=== PATIENT | male | born 1975 | race Caucasian/White ===

== ENCOUNTER 2018-04-14 06:20 | Emergency (ER) | payer MEDICAID ==
[~2018-04-14] VITALS: Ht 157.5 cm; Wt 104.3 kg
[2018-04-14 06:22] VITALS: BP 155/99
[2018-04-14] MEDS ORDERED: IBUPROFEN 600 MG TABLET PO ONE ×2 (07:22→07:30)
== END 2018-04-14 07:25 | disposition home or self-care (01) ==
LOC: ER 06:22
DX: S52.591A Other fractures of lower end of right radius, initial encounter for closed fracture (principal); W18.39XA Other fall on same level, initial encounter; Y93.89 Activity, other specified; Y92.89 Other specified places as the place of occurrence of the external cause; Y99.8 Other external cause status
CPT/HCPCS: 73110; A4606; Z7610

== ENCOUNTER 2022-09-14 21:14 | Emergency (ER) | payer MEDICAID ==
[~2022-09-14] VITALS: Ht 165.1 cm; Wt 126.6 kg
--- NOTE | 2022-09-14 21:35 | NUR ---
BIBSELF C/O RIGHT THIGH/KNEE AND GROIN PAIN AND SWELLING FOR ONE DAY. PT IS AAO X 4, FIJIAN SPEAKING, NOT IN DISTRESS. PT STATES SYMPTOMS INCLUDE DRAINAGE. PT ATTAHCED TO MONITOR AND PULSE OX. WILL MONITOR.
--- NOTE | 2022-09-14 21:38 | NUR ---
DISTRICT COURT JUDGE AT PT'S BEDSIDE
--- NOTE | 2022-09-14 21:47 | NUR ---
Note jose fone in EDM - 09/14/22 at 2150 by LEA BIBSELF C/O RIGHT THIGH/KNEE AND GROIN PAIN AND SWELLING FOR ONE DAY. PT IS AAO X 4, ARABIC SPEAKING, NOT IN DISTRESS. PT STATES SYMPTOMS INCLUDE DRAINAGE. PT ATTAHCED TO MONITOR AND PULSE OX. WILL MONITOR.
[2022-09-14 21:49] LABS: BASOPHILS % (AUTO) 0.5 % (0.0-2.0); EOSINOPHILS % (AUTO) 4.2 % (0.0-6.0); HEMATOCRIT 44 % (39-51); HEMOGLOBIN 14.5 g/dL (13.5-17.5); LYMPHOCYTES # (AUTO) 1.4 K/uL (0.8-4.8); LYMPHOCYTES % (AUTO) 28.2 % (20.0-44.0); MEAN CORPUSCULAR HGB CONC 33 g/dl (31.0-36.0); MEAN CORPUSCULAR VOLUME 90 fL (80-96); MONOCYTES # (AUTO) 0.8 K/uL (0.1-1.30); MONOCYTES % (AUTO) 15.8 % (2.0-12.0); NEUTROPHILS # (AUTO) 2.6 K/uL (1.8-8.9); NEUTROPHILS % (AUTO) 51.3 % (43.0-81.0); PLATELET COUNT (AUTO) 259 K/uL (150-450); RED BLOOD CELL COUNT(AUTO) 4.91 MIL/uL (4.5-6.0); WHITE BLOOD COUNT (AUTO) 5.1 K/uL (4.3-11.0)
[2022-09-14 22:01] LABS: CALCIUM, SERUM 8.3 mg/dL (8.5-10.1); CREATININE 0.7 mg/dL (0.6-1.3); POTASSIUM 3.8 mmol/L (3.5-5.1)
[2022-09-14 22:44] VITALS: BP 154/70
--- NOTE | 2022-09-14 22:44 | NUR ---
Patient discharged to home in stable condition. Written and verbal after care instructions given. Patient verbalizes understanding of instruction. Pt is ambulatory with a steady gait
[2022-09-15 05:16] LABS: EOSINOPHILS % (MANUAL) 3 % (0-4); LYMPHOCYTES % (MANUAL) 28 % (16-48); MONOCYTES % (MANUAL) 10 % (0-11.0); NEUTROPHILS % (MANUAL) 59 (42-76)
== END 2022-09-14 22:45 | disposition home or self-care (01) ==
LOC: ER 21:19
DX: R60.0 Localized edema (principal)
CPT/HCPCS: 99284; 93971; 85025; 80048; 36415; 83880; 85007; A6403

== ENCOUNTER 2023-09-05 11:53 | Inpatient (IN) | payer MEDICAID, OTHER ==
[~2023-09-05] VITALS: Ht 165.1 cm; Wt 102.5 kg
[2023-09-05] MEDS ORDERED: methylPREDNISolone SOD SUCC 125 MG/2ML VIAL ONE (12:27)
[2023-09-05] MEDS ORDERED: Magnesium 1GM/D5W 100ML PREMIX 100 ML IV ONE (12:29)
[2023-09-05] MEDS ORDERED: CEFEPIME 1 GM in IV D5W 50 ML IV ONE (12:30)
[2023-09-05] MEDS ORDERED: ACETAMINOPHEN 650 MG/20.3 ML UDC PO ONE (12:30)
[2023-09-05] MEDS ORDERED: methylPREDNISolone SOD SUCC 125 MG/2ML VIAL IV ONE (12:30)
[2023-09-05] MEDS ORDERED: IPRATROPIUM NEB FS 0.5 MG/2.5 ML AMPUL.NEB NEB ONE (12:30)
[2023-09-05] MEDS ORDERED: ALBUTEROL FS 2.5 MG/3 ML VIAL.NEB CONTNEB ONE (12:30)
[2023-09-05] MEDS ORDERED: VANCOMYCIN 1 GM in IV D5W 250 ML IV ONE (12:30)
[2023-09-05 12:39] LABS: ABG BASE EXCESS 3.1 mmol/L; ABG OXYGEN SATURATION 93.4 % (92.0-98.5); ABG PCO2 54.6 mmHg (35.0-45.0); ABG PH 7.357 (7.350-7.450); ABG PO2 72.7 mmHg (75.0-100.0); AaDO2 585.7 mmHg; COHb 1.3 % (0.5-1.5); MetHb 0.1 % (0.0-1.5); O2Hb 92.1 % (94.0-97.0); SITE, ABG Right Radial; VENT MODE, BG 18/8 16 100%
[2023-09-05] MEDS ORDERED: ACETAMINOPHEN ES 500 MG TABLET ONE (12:44)
[2023-09-05] MEDS ORDERED: ALBUTEROL FS 2.5 MG/3 ML VIAL.NEB ONE (12:46)
[2023-09-05] MEDS ORDERED: IPRATROPIUM NEB FS 0.5 MG/2.5 ML AMPUL.NEB ONE (12:46)
[2023-09-05 12:50] LABS: BASOPHILS % (AUTO) 0.3 % (0.0-2.0); HEMATOCRIT 43 % (39-51); LYMPHOCYTES # (AUTO) 0.3 K/uL (0.8-4.8); LYMPHOCYTES % (AUTO) 4.9 % (20.0-44.0); MEAN CORPUSCULAR HEMOGLOBIN 30 PG (26.0-33.0); MEAN CORPUSCULAR HGB CONC 33 g/dl (31.0-36.0); MEAN CORPUSCULAR VOLUME 90 fL (80-96); MONOCYTES # (AUTO) 0.4 K/uL (0.1-1.30); MONOCYTES % (AUTO) 6.4 % (2.0-12.0); NEUTROPHILS # (AUTO) 5.6 K/uL (1.8-8.9); NEUTROPHILS % (AUTO) 88.4 % (43.0-81.0); PLATELET COUNT (AUTO) 276 K/uL (150-450); RED BLOOD CELL COUNT(AUTO) 4.73 MIL/uL (4.5-6.0); RED CELL DISTRIBUTION WIDTH 13.7 % (11.5-15.0); WHITE BLOOD COUNT (AUTO) 6.4 K/uL (4.3-11.0)
[2023-09-05 12:58] LABS: CALCIUM, SERUM 7.9 mg/dL (8.5-10.1); CARBON DIOXIDE 32 mmol/L (21-32); CHLORIDE 92 mmol/L (98-107); GLUCOSE 301 mg/dL (74-106); POTASSIUM 4.8 mmol/L (3.5-5.1); SODIUM SERUM 132 mmol/L (136-145); UREA NITROGEN, BLOOD 15 mg/dL (7-18)
[2023-09-05] MEDS ORDERED: FUROSEMIDE 40 MG/4 ML VIAL IV ONE (13:00)
[2023-09-05 13:03] LABS: ALANINE AMINOTRANSFERASE 128 U/L (12-78); ALBUMIN 2.6 g/dL (3.4-5.0); ALKALINE PHOSPHATASE 156 U/L (46-116); ASPARTATE AMINOTRANSFERASE 248 U/L (15-37); BILIRUBIN,DIRECT 0.1 mg/dL (0.0-0.2); BILIRUBIN,TOTAL 0.4 mg/dL (0.2-1.0); TOTAL PROTEIN, SERUM 7.4 g/dL (6.4-8.2)
[2023-09-05 13:14] LABS: INR 1.11 (0.91-1.10); PARTIAL THROMBOPLASTIN TIME 27.1 SEC (24.3-34.3); PROTHROMBIN TIME 11.7 SECS (9.2-11.1)
[2023-09-05 13:23] LABS: LACTIC ACID 3.7 mmol/L (0.4-2.0)
[2023-09-05] MEDS ORDERED: ONDANSETRON HCL/PF - ER 4 MG/2 ML VIAL IV ONE (13:30)
[2023-09-05] MEDS ORDERED: IV NS 0.9% 500 ML IV ONE (13:30)
[2023-09-05 14:10] LABS: ABG BASE EXCESS 4.4 mmol/L; ABG OXYGEN SATURATION 93.6 % (92.0-98.5); ABG PCO2 68.8 mmHg (35.0-45.0); ABG PH 7.301 (7.350-7.450); ABG PO2 78.2 mmHg (75.0-100.0); ABG TOTAL HEMOGLOBIN 14.8 G/dL (13.5-18.0); COHb 0.9 % (0.5-1.5); MetHb 0.3 % (0.0-1.5); O2Hb 92.5 % (94.0-97.0); SITE, ABG Right Radial; VENT MODE, BG ST 18/8 16 100%
[2023-09-05 15:04] LABS: MONOTEST NEGATIVE (NEGATIVE)
[2023-09-05] MEDS ORDERED: CEFTRIAXONE 1 G in IV D5W 50 ML IV SCH (15:30)
[2023-09-05] MEDS ORDERED: DEXTROSE 50%-WATER 50 ML DISP.SYRIN IV PRN (16:00)
[2023-09-05] MEDS ORDERED: MAG HYDROX/AL HYDROX/SIMETH 30 ML UDC PO PRN (16:00)
[2023-09-05] MEDS ORDERED: Z GUARD REMEDY 4 OZ OINT TP PRN (16:00)
[2023-09-05] MEDS ORDERED: ONDANSETRON HCL/PF 4 MG/2 ML VIAL IVP PRN (16:00)
[2023-09-05] MEDS ORDERED: MORPHINE SULFATE INJ 2 MG/ML DISP.SYRIN IV PRN (16:00)
[2023-09-05] MEDS ORDERED: MAGNESIUM HYDROXIDE 30 ML UDC PO PRN (16:00)
[2023-09-05] MEDS ORDERED: ASPIRIN 325 MG TABLET PO ONE (16:00)
[2023-09-05] MEDS ORDERED: ACETAMINOPHEN 325 MG TABLET PO PRN (16:00)
[2023-09-05] MEDS ORDERED: ASPIRIN 325 MG TABLET ONE (16:16)
[2023-09-05] MEDS: CEFTRIAXONE 2 G in IV D5W 100 ML IV SCH ×2 (16:30→16:37)
[2023-09-05 16:52] LABS: ABG BASE EXCESS 4.3 mmol/L; ABG OXYGEN SATURATION 94.3 % (92.0-98.5); ABG PCO2 71.8 mmHg (35.0-45.0); ABG PH 7.287 (7.350-7.450); ABG PO2 79.8 mmHg (75.0-100.0); COHb 0.4 % (0.5-1.5); MetHb 0.4 % (0.0-1.5); O2Hb 93.5 % (94.0-97.0); SITE, ABG Right Radial; VENT MODE, BG ST 20/8 RR 20 100%
[2023-09-05] MEDS: LEVOFLOXACIN 750 MG /D5W 150ML 150 ML IV SCH (17:00)
[2023-09-05] MEDS: BLOOD SUGAR DIAGNOSTIC 1 EACH STRIP IN SCH ×2 (18:17→21:23)
[2023-09-05] MEDS ORDERED: INSULIN REGULAR, HUMAN 100 UNIT/ML 10 ML VIAL ONE ×2 (18:20→18:22)
[2023-09-05] MEDS: INSULIN REGULAR, HUMAN 100 UNIT/ML 3 ML VIAL SQ PRN ×2 (18:23→22:18)
[2023-09-05] MEDS ORDERED: ENOXAPARIN SODIUM 40 MG/0.4 ML DISP.SYRIN SQ ONE (19:35)
[2023-09-05] MEDS ORDERED: methylPREDNISolone SOD SUCC 40 MG/ML VIAL ONE (19:35)
[2023-09-05 20:44] LABS: ABG BASE EXCESS 5.2 mmol/L; ABG OXYGEN SATURATION 94.8 % (92.0-98.5); ABG PCO2 73.3 mmHg (35.0-45.0); ABG PH 7.291 (7.350-7.450); ABG PO2 82.9 mmHg (75.0-100.0); ABG TOTAL HEMOGLOBIN 14.8 G/dL (13.5-18.0); COHb 0.2 % (0.5-1.5); MetHb 0.3 % (0.0-1.5); O2Hb 94.3 % (94.0-97.0); SITE, ABG Right Radial; VENT MODE, BG Bipap 25/8 100% rr20
[2023-09-05] MEDS: methylPREDNISolone SOD SUCC 40 MG/ML VIAL IV SCH (21:00)
[2023-09-05] MEDS: ENOXAPARIN SODIUM 40 MG/0.4 ML DISP.SYRIN SQ SCH (21:01)
[2023-09-06 00:19] LABS: APPEARANCE,URINE CLEAR (CLEAR); BILIRUBIN,URINE NEGATIVE (NEGATIVE); BLOOD, URINE TRACE-INTA Ery/uL (NEGATIVE); COLOR,URINE YELLOW (YELLOW); KETONES,URINE NEGATIVE (NEGATIVE); LEUKOCYTE ESTERASE ,URINE NEGATIVE (NEGATIVE); NITRITE, URINE NEGATIVE (NEGATIVE); PH,URINE 6.5 (5.0-8.0); PROTEIN,URINE 2+ mg/dl (NEGATIVE); UGLUCOSE TRACE mg/dL (NEGATIVE); UROBILINOGEN,URINE 0.2 EU/dL (0.2)
[2023-09-06 00:27] LABS: ADD URINE CULTURE NO; BACTERIA,URINE None seen /HPF (None Seen); SQUAMOUS EPITHELIAL CELL,UR Few /HPF (None Seen); WBC,URINE 0-2 /HPF (0-3)
[2023-09-06] MEDS ORDERED: methylPREDNISolone SOD SUCC 40 MG/ML VIAL ONE ×2 (05:01→13:09)
[2023-09-06] MEDS: methylPREDNISolone SOD SUCC 40 MG/ML VIAL IV SCH ×3 (05:02→21:41)
[2023-09-06 07:28] LABS: BASOPHILS % (AUTO) 0.2 % (0.0-2.0); HEMATOCRIT 49 % (39-51); HEMOGLOBIN 16.4 g/dL (13.5-17.5); LYMPHOCYTES # (AUTO) 0.7 K/uL (0.8-4.8); LYMPHOCYTES % (AUTO) 9.6 % (20.0-44.0); MEAN CORPUSCULAR HEMOGLOBIN 30 PG (26.0-33.0); MEAN CORPUSCULAR HGB CONC 33 g/dl (31.0-36.0); MEAN CORPUSCULAR VOLUME 89 fL (80-96); MONOCYTES # (AUTO) 0.1 K/uL (0.1-1.30); MONOCYTES % (AUTO) 0.7 % (2.0-12.0); NEUTROPHILS # (AUTO) 6.1 K/uL (1.8-8.9); NEUTROPHILS % (AUTO) 89.5 % (43.0-81.0); PLATELET COUNT (AUTO) 239 K/uL (150-450); RED BLOOD CELL COUNT(AUTO) 5.53 MIL/uL (4.5-6.0); RED CELL DISTRIBUTION WIDTH 14.7 % (11.5-15.0); WHITE BLOOD COUNT (AUTO) 6.9 K/uL (4.3-11.0)
[2023-09-06 07:50] LABS: CALCIUM, SERUM 8.8 mg/dL (8.5-10.1); CREATININE 1.3 mg/dL (0.6-1.3); MAGNESIUM 1.9 mg/dL (1.8-2.4); PHOSPHORUS 4.2 mg/dL (2.5-4.9); POTASSIUM 3.9 mmol/L (3.5-5.1)
[2023-09-06 07:51] LABS: THYROID STIMULATING HORMONE 0.891 uIU/mL (0.358-3.74)
[2023-09-06] MEDS ORDERED: ALBUTEROL FS 2.5 MG/3 ML VIAL.NEB ONE (08:02)
[2023-09-06] MEDS: BLOOD SUGAR DIAGNOSTIC 1 EACH STRIP IN SCH ×4 (08:18→21:41)
[2023-09-06] MEDS ORDERED: PANTOPRAZOLE 40 MG VIAL ONE (08:20)
[2023-09-06 08:42] LABS: ABG BASE EXCESS 3.2 mmol/L; ABG OXYGEN SATURATION 90.8 % (92.0-98.5); ABG PCO2 58.6 mmHg (35.0-45.0); ABG PH 7.337 (7.350-7.450); ABG PO2 61.3 mmHg (75.0-100.0); ABG TOTAL HEMOGLOBIN 15.1 G/dL (13.5-18.0); COHb 0.2 % (0.5-1.5); MetHb 0.2 % (0.0-1.5); O2Hb 90.4 % (94.0-97.0); SITE, ABG Right Radial; VENT MODE, BG BIPAP 25/8 @100% RR20
[2023-09-06] MEDS: PANTOPRAZOLE 40 MG VIAL IV SCH (08:56)
[2023-09-06] MEDS ORDERED: INSULIN REGULAR, HUMAN 100 UNIT/ML 10 ML VIAL ONE (13:09)
[2023-09-06] MEDS: INSULIN REGULAR, HUMAN 100 UNIT/ML 3 ML VIAL SQ PRN ×2 (13:33→21:56)
[2023-09-06] MEDS ORDERED: LEVOFLOXACIN 750 MG /D5W 150ML 150 ML IV ONE (16:05)
[2023-09-06] MEDS: LEVOFLOXACIN 750 MG /D5W 150ML 150 ML IV SCH (16:13)
[2023-09-06 20:13] LABS: ABG BASE EXCESS 5.9 mmol/L; ABG PCO2 51.9 mmHg (35.0-45.0); ABG PH 7.408 (7.350-7.450); ABG PO2 53.1 mmHg (75.0-100.0); ABG TOTAL HEMOGLOBIN 14.4 G/dL (13.5-18.0); COHb 0.7 % (0.5-1.5); MetHb 0.3 % (0.0-1.5); O2Hb 86.1 % (94.0-97.0); SITE, ABG Right Radial; VENT MODE, BG ST 25/10 RR 20 100%
[2023-09-06 20:45] VITALS: BP 113/75; TEMP 97; O2SAT 95
[2023-09-06 21:00] VITALS: BP 116/106; O2SAT 91
[2023-09-06] MEDS: ENOXAPARIN SODIUM 40 MG/0.4 ML DISP.SYRIN SQ SCH (21:42)
[2023-09-06 22:00] VITALS: BP 93/55; O2SAT 91
[2023-09-06] MEDS ORDERED: CEFEPIME 2 GM in IV D5W 100 ML IV SCH (22:00)
[2023-09-06 23:00] VITALS: BP 97/61; O2SAT 89
[2023-09-07] VITALS (63 sets, daily range): BP systolic 64–133; BP diastolic 36–91; TEMP 97–98; O2SAT 78–95
[2023-09-07] MEDS ORDERED: CEFEPIME 1 GM VIAL ONE (00:28)
[2023-09-07 03:28] LABS: ABG BASE EXCESS 9.1 mmol/L; ABG OXYGEN SATURATION 85.6 % (92.0-98.5); ABG PCO2 57.7 mmHg (35.0-45.0); ABG PH 7.411 (7.350-7.450); ABG PO2 51.2 mmHg (75.0-100.0); ABG TOTAL HEMOGLOBIN 14.4 G/dL (13.5-18.0); AaDO2 604.1 mmHg; COHb 0.5 % (0.5-1.5); MetHb 0.1 % (0.0-1.5); O2Hb 85.1 % (94.0-97.0); SITE, ABG Right Radial; VENT MODE, BG Bipap 25/15 100% RR20
[2023-09-07 05:20] LABS: CALCIUM, SERUM 8.2 mg/dL (8.5-10.1); CREATININE 0.8 mg/dL (0.6-1.3)
[2023-09-07 05:25] LABS: BASOPHILS % (AUTO) 0.1 % (0.0-2.0); HEMATOCRIT 41 % (39-51); HEMOGLOBIN 13.4 g/dL (13.5-17.5); LYMPHOCYTES # (AUTO) 0.3 K/uL (0.8-4.8); MEAN CORPUSCULAR HEMOGLOBIN 29 PG (26.0-33.0); MEAN CORPUSCULAR HGB CONC 33 g/dl (31.0-36.0); MEAN CORPUSCULAR VOLUME 90 fL (80-96); MONOCYTES # (AUTO) 1.1 K/uL (0.1-1.30); MONOCYTES % (AUTO) 7.3 % (2.0-12.0); NEUTROPHILS # (AUTO) 13.4 K/uL (1.8-8.9); NEUTROPHILS % (AUTO) 90.6 % (43.0-81.0); PLATELET COUNT (AUTO) 328 K/uL (150-450); RED BLOOD CELL COUNT(AUTO) 4.58 MIL/uL (4.5-6.0); RED CELL DISTRIBUTION WIDTH 13.4 % (11.5-15.0); WHITE BLOOD COUNT (AUTO) 14.8 K/uL (4.3-11.0)
[2023-09-07] MEDS: methylPREDNISolone SOD SUCC 40 MG/ML VIAL IV SCH ×3 (05:48→21:40)
[2023-09-07] MEDS: BLOOD SUGAR DIAGNOSTIC 1 EACH STRIP IN SCH ×4 (07:32→22:22)
[2023-09-07] MEDS: CEFEPIME 2 GM in IV D5W 100 ML IV SCH ×3 (07:58→21:39)
[2023-09-07] MEDS: PANTOPRAZOLE 40 MG VIAL IV SCH (08:37)
[2023-09-07] MEDS: PROPOFOL 100 ML IV PRN ×8 (10:36→22:21)
[2023-09-07] MEDS: NOREPINEPHRINE 8 MG in IV NS 0.9% 242 ML IV PRN (11:11)
[2023-09-07] MEDS: INSULIN REGULAR, HUMAN 100 UNIT/ML 3 ML VIAL SQ PRN ×3 (11:22→22:16)
[2023-09-07 11:44] LABS: ABG BASE EXCESS 6.8 mmol/L; ABG OXYGEN SATURATION 79.4 % (92.0-98.5); ABG PCO2 60.3 mmHg (35.0-45.0); ABG PH 7.373 (7.350-7.450); ABG PO2 46.1 mmHg (75.0-100.0); ABG TOTAL HEMOGLOBIN 15.4 G/dL (13.5-18.0); AaDO2 606.6 mmHg; COHb 0.2 % (0.5-1.5); MetHb 0.4 % (0.0-1.5); O2Hb 78.9 % (94.0-97.0); PEEP,BG 15 cm H2O; SITE, ABG Right Brachial; VT, ABG 500 mL
[2023-09-07] MEDS ORDERED: PROPOFOL 200 MG/20 ML VIAL IV ONE (15:34)
[2023-09-07] MEDS ORDERED: BUMETANIDE INJ 1 MG in IV NS 0.9% 40 ML IV ONE (16:30)
[2023-09-07] MEDS ORDERED: BUMETANIDE INJ 6 MG in IV NS 0.9% 36 ML IV ONE (16:30)
[2023-09-07 17:21] LABS: HIV-1 p24 ANTIGEN NON REACTIVE (NONREACTIVE); HIV-1/2 ANTIBODY NON REACTIVE (NONREACTIVE)
[2023-09-07] MEDS: ENOXAPARIN SODIUM 40 MG/0.4 ML DISP.SYRIN SQ SCH (21:50)
[2023-09-08] VITALS (94 sets, daily range): BP systolic 111–141; BP diastolic 65–89; TEMP 97.9–99.6; O2SAT 89–93
[2023-09-08] MEDS: PROPOFOL 100 ML IV PRN ×11 (00:07→23:44)
[2023-09-08] MEDS: NOREPINEPHRINE 8 MG in IV NS 0.9% 242 ML IV PRN (01:57)
[2023-09-08] MEDS: CEFEPIME 2 GM in IV D5W 100 ML IV SCH ×3 (04:44→20:52)
[2023-09-08] MEDS: methylPREDNISolone SOD SUCC 40 MG/ML VIAL IV SCH ×3 (04:45→21:23)
[2023-09-08 05:29] LABS: HEMATOCRIT 43 % (39-51); HEMOGLOBIN 14.4 g/dL (13.5-17.5); LYMPHOCYTES # (AUTO) 0.5 K/uL (0.8-4.8); LYMPHOCYTES % (AUTO) 2.7 % (20.0-44.0); MEAN CORPUSCULAR HEMOGLOBIN 30 PG (26.0-33.0); MEAN CORPUSCULAR HGB CONC 33 g/dl (31.0-36.0); MEAN CORPUSCULAR VOLUME 90 fL (80-96); MONOCYTES # (AUTO) 1.4 K/uL (0.1-1.30); MONOCYTES % (AUTO) 8.4 % (2.0-12.0); NEUTROPHILS # (AUTO) 14.8 K/uL (1.8-8.9); NEUTROPHILS % (AUTO) 88.9 % (43.0-81.0); PLATELET COUNT (AUTO) 401 K/uL (150-450); RED BLOOD CELL COUNT(AUTO) 4.83 MIL/uL (4.5-6.0); RED CELL DISTRIBUTION WIDTH 13.9 % (11.5-15.0); WHITE BLOOD COUNT (AUTO) 16.7 K/uL (4.3-11.0)
[2023-09-08 05:43] LABS: ABG OXYGEN SATURATION 90.1 % (92.0-98.5); ABG PCO2 49.8 mmHg (35.0-45.0); ABG PH 7.482 (7.350-7.450); ABG PO2 60.8 mmHg (75.0-100.0); ABG TOTAL HEMOGLOBIN 15.4 G/dL (13.5-18.0); AaDO2 602.4 mmHg; COHb 0.3 % (0.5-1.5); MetHb 0.2 % (0.0-1.5); O2Hb 89.6 % (94.0-97.0); PEEP,BG 15 cm H2O; SITE, ABG Right Radial; VENT MODE, BG AC24 500 100% +15; VT, ABG 500 mL
[2023-09-08 06:14] LABS: CALCIUM, SERUM 7.6 mg/dL (8.5-10.1); MAGNESIUM 2.5 mg/dL (1.8-2.4); POTASSIUM 4.2 mmol/L (3.5-5.1)
[2023-09-08] MEDS: BLOOD SUGAR DIAGNOSTIC 1 EACH STRIP IN SCH ×4 (07:30→21:16)
[2023-09-08] MEDS: PANTOPRAZOLE 40 MG VIAL IV SCH (08:50)
[2023-09-08] MEDS: INSULIN REGULAR, HUMAN 100 UNIT/ML 3 ML VIAL SQ PRN ×4 (08:57→21:20)
[2023-09-08] MEDS ORDERED: PANTOPRAZOLE 40 MG TABLET.DR PO SCH (09:00)
[2023-09-08] MEDS: ENOXAPARIN SODIUM 40 MG/0.4 ML DISP.SYRIN SQ SCH (21:18)
[2023-09-08] MEDS: INSULIN GLARGINE, 100 UNIT/ML CARTRIDGE SQ SCH (21:19)
[2023-09-09] VITALS (95 sets, daily range): BP systolic 87–139; BP diastolic 44–91; TEMP 98.1–99.7; O2SAT 88–99
[2023-09-09] MEDS: PROPOFOL 100 ML IV PRN ×14 (01:44→23:59)
[2023-09-09] MEDS: NOREPINEPHRINE 8 MG in IV NS 0.9% 242 ML IV PRN (02:49)
[2023-09-09 04:35] LABS: BASOPHILS % (AUTO) 0.1 % (0.0-2.0); HEMATOCRIT 43 % (39-51); HEMOGLOBIN 14.5 g/dL (13.5-17.5); LYMPHOCYTES # (AUTO) 0.5 K/uL (0.8-4.8); LYMPHOCYTES % (AUTO) 2.8 % (20.0-44.0); MEAN CORPUSCULAR HEMOGLOBIN 30 PG (26.0-33.0); MEAN CORPUSCULAR HGB CONC 33 g/dl (31.0-36.0); MEAN CORPUSCULAR VOLUME 90 fL (80-96); MONOCYTES # (AUTO) 1.6 K/uL (0.1-1.30); MONOCYTES % (AUTO) 8.9 % (2.0-12.0); NEUTROPHILS # (AUTO) 16.3 K/uL (1.8-8.9); NEUTROPHILS % (AUTO) 88.2 % (43.0-81.0); PLATELET COUNT (AUTO) 417 K/uL (150-450); RED BLOOD CELL COUNT(AUTO) 4.84 MIL/uL (4.5-6.0); RED CELL DISTRIBUTION WIDTH 13.6 % (11.5-15.0); WHITE BLOOD COUNT (AUTO) 18.4 K/uL (4.3-11.0)
[2023-09-09 04:58] LABS: CALCIUM, SERUM 7.8 mg/dL (8.5-10.1); CREATININE 0.8 mg/dL (0.6-1.3)
[2023-09-09] MEDS: CEFEPIME 2 GM in IV D5W 100 ML IV SCH ×3 (04:59→21:08)
[2023-09-09] MEDS: methylPREDNISolone SOD SUCC 40 MG/ML VIAL IV SCH ×3 (05:31→21:15)
[2023-09-09] MEDS ORDERED: DEXTROSE 50%-WATER 50 ML DISP.SYRIN IV PRN (06:00)
[2023-09-09] MEDS: INSULIN REGULAR, HUMAN 100 UNIT/ML 3 ML VIAL SQ PRN ×5 (06:12→21:23)
[2023-09-09 08:14] LABS: ABG BASE EXCESS 13.6 mmol/L; ABG OXYGEN SATURATION 89.5 % (92.0-98.5); ABG PCO2 48.5 mmHg (35.0-45.0); ABG PH 7.519 (7.350-7.450); ABG PO2 54.4 mmHg (75.0-100.0); ABG TOTAL HEMOGLOBIN 15.3 G/dL (13.5-18.0); AaDO2 610.1 mmHg; COHb 0.3 % (0.5-1.5); MetHb 0.2 % (0.0-1.5); O2Hb 89.1 % (94.0-97.0); SITE, ABG Right Radial
[2023-09-09] MEDS: BLOOD SUGAR DIAGNOSTIC 1 EACH STRIP IN SCH ×4 (09:20→21:09)
[2023-09-09] MEDS: PANTOPRAZOLE 40 MG VIAL IV SCH (09:20)
[2023-09-09 12:29] LABS: ABG BASE EXCESS 9.8 mmol/L; ABG PCO2 67.4 mmHg (35.0-45.0); ABG PH 7.371 (7.350-7.450); ABG PO2 128.3 mmHg (75.0-100.0); ABG TOTAL HEMOGLOBIN 15.4 G/dL (13.5-18.0); AaDO2 517.3 mmHg; COHb 0.6 % (0.5-1.5); MetHb 0.4 % (0.0-1.5); PEEP,BG 15 cm H2O; SITE, ABG Left Radial; VT, ABG 500 mL
[2023-09-09 15:17] LABS: ABG OXYGEN SATURATION 98.2 % (92.0-98.5); ABG PH 7.284 (7.350-7.450); ABG PO2 150.9 mmHg (75.0-100.0); ABG TOTAL HEMOGLOBIN 15.3 G/dL (13.5-18.0); AaDO2 471.1 mmHg; COHb 0.1 % (0.5-1.5); MetHb 0.5 % (0.0-1.5); O2Hb 97.6 % (94.0-97.0); SITE, ABG Right Radial
[2023-09-09 20:00] LABS: ABG BASE EXCESS 15.2 mmol/L; ABG OXYGEN SATURATION 95.2 % (92.0-98.5); ABG PH 7.465 (7.350-7.450); ABG PO2 76.4 mmHg (75.0-100.0); ABG TOTAL HEMOGLOBIN 15.4 G/dL (13.5-18.0); AaDO2 358.2 mmHg; COHb 0.2 % (0.5-1.5); MetHb 0.3 % (0.0-1.5); O2Hb 94.7 % (94.0-97.0); PEEP,BG 15 cm H2O; SITE, ABG Right Radial; VENT MODE, BG AC 24 500 70% +15; VT, ABG 500 mL
[2023-09-09 20:08] LABS: *MYCOPLASMA PNEUMONIAE IgM <770 U/mL (0-769)
[2023-09-09 21:10] LABS: *MYCOPLASMA PNEUMONIAE IgG 301 U/mL (0-99); LEGIONELLA PNEUMOPHILIA AB <0.91 OD ratio (0.00-0.90)
[2023-09-09] MEDS: ENOXAPARIN SODIUM 40 MG/0.4 ML DISP.SYRIN SQ SCH (21:21)
[2023-09-09] MEDS: INSULIN GLARGINE, 100 UNIT/ML CARTRIDGE SQ SCH (21:22)
[2023-09-10] VITALS (100 sets, daily range): BP systolic 90–125; BP diastolic 48–81; TEMP 98.9–99.5; O2SAT 88–98
[2023-09-10] MEDS: PROPOFOL 100 ML IV PRN ×14 (00:54→22:42)
[2023-09-10] MEDS: BLOOD SUGAR DIAGNOSTIC 1 EACH STRIP IN SCH ×6 (01:15→21:31)
[2023-09-10] MEDS: INSULIN REGULAR, HUMAN 100 UNIT/ML 3 ML VIAL SQ PRN ×6 (01:20→21:43)
[2023-09-10] MEDS: CEFEPIME 2 GM in IV D5W 100 ML IV SCH ×3 (04:14→21:35)
[2023-09-10] MEDS: methylPREDNISolone SOD SUCC 40 MG/ML VIAL IV SCH ×3 (04:20→21:38)
[2023-09-10 04:43] LABS: BASOPHILS % (AUTO) 0.2 % (0.0-2.0); HEMATOCRIT 44 % (39-51); LYMPHOCYTES # (AUTO) 0.5 K/uL (0.8-4.8); LYMPHOCYTES % (AUTO) 2.7 % (20.0-44.0); MEAN CORPUSCULAR HEMOGLOBIN 29 PG (26.0-33.0); MEAN CORPUSCULAR HGB CONC 32 g/dl (31.0-36.0); MEAN CORPUSCULAR VOLUME 91 fL (80-96); MONOCYTES % (AUTO) 5.7 % (2.0-12.0); NEUTROPHILS # (AUTO) 16.6 K/uL (1.8-8.9); NEUTROPHILS % (AUTO) 91.4 % (43.0-81.0); PLATELET COUNT (AUTO) 400 K/uL (150-450); RED BLOOD CELL COUNT(AUTO) 4.82 MIL/uL (4.5-6.0); RED CELL DISTRIBUTION WIDTH 13.9 % (11.5-15.0); WHITE BLOOD COUNT (AUTO) 18.2 K/uL (4.3-11.0)
[2023-09-10 04:50] LABS: CALCIUM, SERUM 8.1 mg/dL (8.5-10.1); CREATININE 0.7 mg/dL (0.6-1.3); POTASSIUM 4.4 mmol/L (3.5-5.1)
[2023-09-10 07:38] LABS: ABG BASE EXCESS 12.6 mmol/L; ABG PCO2 58.3 mmHg (35.0-45.0); ABG PH 7.447 (7.350-7.450); ABG PO2 57.8 mmHg (75.0-100.0); ABG TOTAL HEMOGLOBIN 15.1 G/dL (13.5-18.0); AaDO2 342.3 mmHg; COHb 0.5 % (0.5-1.5); MetHb 0.3 % (0.0-1.5); O2Hb 89.3 % (94.0-97.0); SITE, ABG Right Radial
[2023-09-10] MEDS ORDERED: GLUCERNA 1.5 1,000 ML BOTTLE NG PRN ×2 (08:30)
[2023-09-10] MEDS: PANTOPRAZOLE 40 MG VIAL IV SCH (09:25)
[2023-09-10] MEDS: NOREPINEPHRINE 8 MG in IV NS 0.9% 242 ML IV PRN (09:57)
[2023-09-10] MEDS ORDERED: PANTOPRAZOLE 40 MG VIAL IV SCH (12:00)
[2023-09-10 12:43] LABS: ABG BASE EXCESS 12.3 mmol/L; ABG OXYGEN SATURATION 88.7 % (92.0-98.5); ABG PCO2 49.1 mmHg (35.0-45.0); ABG TOTAL HEMOGLOBIN 14.7 G/dL (13.5-18.0); AaDO2 356.1 mmHg; COHb 0.7 % (0.5-1.5); MetHb 0.2 % (0.0-1.5); O2Hb 87.9 % (94.0-97.0); SITE, ABG Right Radial
[2023-09-10] MEDS ORDERED: MIDAZOLAM HCL 200 MG in IV NS 0.9% 60 ML IV PRN (16:30)
[2023-09-10] MEDS: FENTANYL CITRAT IV 2,500 MCG in IV NS 0.9% 200 ML IV PRN (17:49)
[2023-09-10] MEDS: MIDAZOLAM HCL 100 MG in IV NS 0.9% 80 ML IV PRN (17:50)
[2023-09-10] MEDS: ENOXAPARIN SODIUM 40 MG/0.4 ML DISP.SYRIN SQ SCH (21:41)
[2023-09-10] MEDS: INSULIN GLARGINE, 100 UNIT/ML CARTRIDGE SQ SCH (21:44)
[2023-09-11] VITALS (93 sets, daily range): BP systolic 97–136; BP diastolic 53–73; TEMP 97.6–98.8; O2SAT 87–100
[2023-09-11] MEDS: BLOOD SUGAR DIAGNOSTIC 1 EACH STRIP IN SCH ×6 (00:50→23:09)
[2023-09-11] MEDS: INSULIN REGULAR, HUMAN 100 UNIT/ML 3 ML VIAL SQ PRN ×6 (00:53→23:13)
[2023-09-11] MEDS: PROPOFOL 100 ML IV PRN ×3 (00:55→06:50)
[2023-09-11] MEDS ORDERED: methylPREDNISolone SOD SUCC 40 MG/ML VIAL ONE (05:20)
[2023-09-11] MEDS: methylPREDNISolone SOD SUCC 40 MG/ML VIAL IV SCH ×3 (05:22→20:55)
[2023-09-11] MEDS: CEFEPIME 2 GM in IV D5W 100 ML IV SCH ×3 (05:22→21:00)
[2023-09-11 08:59] LABS: ABG BASE EXCESS 11.8 mmol/L; ABG PCO2 51.6 mmHg (35.0-45.0); ABG PH 7.479 (7.350-7.450); ABG PO2 59.8 mmHg (75.0-100.0); ABG TOTAL HEMOGLOBIN 14.9 G/dL (13.5-18.0); AaDO2 311.2 mmHg; COHb 0.6 % (0.5-1.5); MetHb 0.4 % (0.0-1.5); O2Hb 90.1 % (94.0-97.0); PEEP,BG 17 cm H2O; SITE, ABG Right Radial; VT, ABG 500 mL
[2023-09-11] MEDS: PANTOPRAZOLE 40 MG/PACK PACK GT SCH (09:15)
[2023-09-11] MEDS ORDERED: DEXTROSE 50%-WATER 50 ML DISP.SYRIN IV PRN (11:30)
[2023-09-11] MEDS: INSULIN GLARGINE, 100 UNIT/ML CARTRIDGE SQ SCH ×2 (12:58→23:12)
[2023-09-11] MEDS: MIDAZOLAM HCL 100 MG in IV NS 0.9% 80 ML IV PRN (19:10)
[2023-09-11] MEDS: FENTANYL CITRAT IV 2,500 MCG in IV NS 0.9% 200 ML IV PRN (19:11)
[2023-09-11] MEDS: ENOXAPARIN SODIUM 40 MG/0.4 ML DISP.SYRIN SQ SCH (20:55)
[2023-09-11] MEDS ORDERED: INSULIN GLARGINE, 100 UNIT/ML CARTRIDGE SQ SCH (21:00)
[2023-09-12] VITALS (25 sets, daily range): BP systolic 96–133; BP diastolic 54–95; TEMP 98.8–99.7; O2SAT 92–98
[2023-09-12 04:13] LABS: BASOPHILS # (AUTO) 0.1 K/uL (0.0-0.2); BASOPHILS % (AUTO) 0.7 % (0.0-2.0); EOSINOPHILS % (AUTO) 0.2 % (0.0-6.0); HEMATOCRIT 41 % (39-51); HEMOGLOBIN 13.1 g/dL (13.5-17.5); LYMPHOCYTES # (AUTO) 0.3 K/uL (0.8-4.8); LYMPHOCYTES % (AUTO) 3.2 % (20.0-44.0); MEAN CORPUSCULAR HEMOGLOBIN 29 PG (26.0-33.0); MEAN CORPUSCULAR HGB CONC 32 g/dl (31.0-36.0); MEAN CORPUSCULAR VOLUME 90 fL (80-96); MONOCYTES # (AUTO) 0.8 K/uL (0.1-1.30); MONOCYTES % (AUTO) 7.7 % (2.0-12.0); NEUTROPHILS # (AUTO) 8.7 K/uL (1.8-8.9); NEUTROPHILS % (AUTO) 88.2 % (43.0-81.0); PLATELET COUNT (AUTO) 403 K/uL (150-450); RED BLOOD CELL COUNT(AUTO) 4.53 MIL/uL (4.5-6.0); RED CELL DISTRIBUTION WIDTH 13.9 % (11.5-15.0); WHITE BLOOD COUNT (AUTO) 9.9 K/uL (4.3-11.0)
[2023-09-12 04:25] LABS: CALCIUM, SERUM 8.3 mg/dL (8.5-10.1); CREATININE 0.7 mg/dL (0.6-1.3)
[2023-09-12] MEDS: methylPREDNISolone SOD SUCC 40 MG/ML VIAL IV SCH ×3 (04:59→21:32)
[2023-09-12] MEDS: CEFEPIME 2 GM in IV D5W 100 ML IV SCH ×3 (05:00→21:00)
[2023-09-12] MEDS: BLOOD SUGAR DIAGNOSTIC 1 EACH STRIP IN SCH ×4 (06:13→23:26)
[2023-09-12] MEDS: GLUCERNA 1.5 1,000 ML BOTTLE NG PRN (06:13)
[2023-09-12] MEDS: INSULIN REGULAR, HUMAN 100 UNIT/ML 3 ML VIAL SQ PRN ×4 (06:17→23:28)
[2023-09-12] MEDS: PANTOPRAZOLE 40 MG/PACK PACK GT SCH (08:43)
[2023-09-12] MEDS: INSULIN GLARGINE, 100 UNIT/ML CARTRIDGE SQ SCH ×2 (08:45→23:28)
[2023-09-12] MEDS: MIDAZOLAM HCL 100 MG in IV NS 0.9% 80 ML IV PRN (11:55)
[2023-09-12] MEDS: FENTANYL CITRAT IV 2,500 MCG in IV NS 0.9% 200 ML IV PRN (14:14)
[2023-09-12] MEDS: ENOXAPARIN SODIUM 40 MG/0.4 ML DISP.SYRIN SQ SCH (21:33)
[2023-09-13] VITALS (27 sets, daily range): BP systolic 95–126; BP diastolic 58–75; TEMP 98.8–100; O2SAT 90–98
[2023-09-13] MEDS: MIDAZOLAM HCL 100 MG in IV NS 0.9% 80 ML IV PRN ×3 (01:43→23:00)
[2023-09-13] MEDS: CEFEPIME 2 GM in IV D5W 100 ML IV SCH ×3 (05:04→21:00)
[2023-09-13] MEDS: methylPREDNISolone SOD SUCC 40 MG/ML VIAL IV SCH ×3 (05:04→21:09)
[2023-09-13] MEDS: FENTANYL CITRAT IV 2,500 MCG in IV NS 0.9% 200 ML IV PRN ×2 (05:05→17:51)
[2023-09-13] MEDS: BLOOD SUGAR DIAGNOSTIC 1 EACH STRIP IN SCH ×4 (06:08→23:32)
[2023-09-13] MEDS: INSULIN REGULAR, HUMAN 100 UNIT/ML 3 ML VIAL SQ PRN ×3 (06:13→23:37)
[2023-09-13] MEDS: GLUCERNA 1.5 1,000 ML BOTTLE NG PRN (06:15)
[2023-09-13 08:07] LABS: BASOPHILS # (AUTO) 0.1 K/uL (0.0-0.2); BASOPHILS % (AUTO) 0.9 % (0.0-2.0); EOSINOPHILS % (AUTO) 0.2 % (0.0-6.0); HEMATOCRIT 39 % (39-51); HEMOGLOBIN 12.4 g/dL (13.5-17.5); LYMPHOCYTES # (AUTO) 0.3 K/uL (0.8-4.8); LYMPHOCYTES % (AUTO) 2.6 % (20.0-44.0); MEAN CORPUSCULAR HEMOGLOBIN 29 PG (26.0-33.0); MEAN CORPUSCULAR HGB CONC 32 g/dl (31.0-36.0); MEAN CORPUSCULAR VOLUME 90 fL (80-96); MONOCYTES % (AUTO) 8.6 % (2.0-12.0); NEUTROPHILS # (AUTO) 10.5 K/uL (1.8-8.9); NEUTROPHILS % (AUTO) 87.7 % (43.0-81.0); PLATELET COUNT (AUTO) 443 K/uL (150-450); RED BLOOD CELL COUNT(AUTO) 4.32 MIL/uL (4.5-6.0); RED CELL DISTRIBUTION WIDTH 14.1 % (11.5-15.0); WHITE BLOOD COUNT (AUTO) 11.9 K/uL (4.3-11.0)
[2023-09-13 08:23] LABS: CALCIUM, SERUM 8.3 mg/dL (8.5-10.1); CREATININE 0.8 mg/dL (0.6-1.3); MAGNESIUM 2.4 mg/dL (1.8-2.4); PHOSPHORUS 2.9 mg/dL (2.5-4.9); POTASSIUM 4.4 mmol/L (3.5-5.1)
[2023-09-13] MEDS: PANTOPRAZOLE 40 MG/PACK PACK GT SCH (08:58)
[2023-09-13] MEDS: INSULIN GLARGINE, 100 UNIT/ML CARTRIDGE SQ SCH ×2 (09:01→23:37)
[2023-09-13 10:07] LABS: ABG BASE EXCESS 10.1 mmol/L; ABG PCO2 56.2 mmHg (35.0-45.0); ABG PO2 82.9 mmHg (75.0-100.0); ABG TOTAL HEMOGLOBIN 13.8 G/dL (13.5-18.0); AaDO2 283.1 mmHg; COHb 0.6 % (0.5-1.5); MetHb 0.3 % (0.0-1.5); O2Hb 95.1 % (94.0-97.0); SITE, ABG Right Radial
[2023-09-13] MEDS ORDERED: DEXTROSE 50%-WATER 50 ML DISP.SYRIN IV PRN (12:00)
[2023-09-13] MEDS: ENOXAPARIN SODIUM 40 MG/0.4 ML DISP.SYRIN SQ SCH (21:11)
[2023-09-14] VITALS (41 sets, daily range): BP systolic 102–137; BP diastolic 48–92; TEMP 98.1–100.1; O2SAT 90–99
[2023-09-14] MEDS: FENTANYL CITRAT IV 2,500 MCG in IV NS 0.9% 200 ML IV PRN ×2 (04:00→14:54)
[2023-09-14] MEDS: CEFEPIME 2 GM in IV D5W 100 ML IV SCH ×3 (05:00→21:19)
[2023-09-14] MEDS: methylPREDNISolone SOD SUCC 40 MG/ML VIAL IV SCH ×3 (05:09→21:19)
[2023-09-14 05:22] LABS: EOSINOPHILS % (AUTO) 0.1 % (0.0-6.0); HEMATOCRIT 38 % (39-51); LYMPHOCYTES # (AUTO) 0.5 K/uL (0.8-4.8); MEAN CORPUSCULAR HEMOGLOBIN 29 PG (26.0-33.0); MEAN CORPUSCULAR HGB CONC 32 g/dl (31.0-36.0); MEAN CORPUSCULAR VOLUME 91 fL (80-96); MONOCYTES # (AUTO) 1.2 K/uL (0.1-1.30); MONOCYTES % (AUTO) 9.8 % (2.0-12.0); NEUTROPHILS # (AUTO) 10.3 K/uL (1.8-8.9); NEUTROPHILS % (AUTO) 86.1 % (43.0-81.0); PLATELET COUNT (AUTO) 419 K/uL (150-450); RED BLOOD CELL COUNT(AUTO) 4.18 MIL/uL (4.5-6.0); RED CELL DISTRIBUTION WIDTH 13.8 % (11.5-15.0); WHITE BLOOD COUNT (AUTO) 11.9 K/uL (4.3-11.0)
[2023-09-14 05:33] LABS: CALCIUM, SERUM 8.6 mg/dL (8.5-10.1); CREATININE 0.7 mg/dL (0.6-1.3); MAGNESIUM 2.4 mg/dL (1.8-2.4); PHOSPHORUS 3.2 mg/dL (2.5-4.9); POTASSIUM 4.1 mmol/L (3.5-5.1)
[2023-09-14] MEDS: BLOOD SUGAR DIAGNOSTIC 1 EACH STRIP IN SCH ×4 (06:13→23:22)
[2023-09-14] MEDS: GLUCERNA 1.5 1,000 ML BOTTLE NG PRN (06:16)
[2023-09-14] MEDS: INSULIN REGULAR, HUMAN 100 UNIT/ML 3 ML VIAL SQ PRN ×4 (06:17→23:23)
[2023-09-14] MEDS: MIDAZOLAM HCL 100 MG in IV NS 0.9% 80 ML IV PRN (09:38)
[2023-09-14] MEDS: PANTOPRAZOLE 40 MG/PACK PACK GT SCH (10:23)
[2023-09-14] MEDS: INSULIN GLARGINE, 100 UNIT/ML CARTRIDGE SQ SCH ×2 (10:27→21:32)
[2023-09-14] MEDS ORDERED: MAG HYDROX/AL HYDROX/SIMETH 30 ML UDC GT PRN (12:41)
[2023-09-14] MEDS ORDERED: MAGNESIUM HYDROXIDE 30 ML UDC GT PRN (12:41)
[2023-09-14] MEDS: MIDAZOLAM HCL 200 MG in IV NS 0.9% 60 ML IV PRN (18:28)
[2023-09-14] MEDS: ENOXAPARIN SODIUM 40 MG/0.4 ML DISP.SYRIN SQ SCH (21:32)
[2023-09-15] VITALS (48 sets, daily range): BP systolic 89–143; BP diastolic 54–103; TEMP 98.2–99.2; O2SAT 88–100
[2023-09-15] MEDS: FENTANYL CITRAT IV 2,500 MCG in IV NS 0.9% 200 ML IV PRN ×2 (01:37→12:25)
[2023-09-15] MEDS: CEFEPIME 2 GM in IV D5W 100 ML IV SCH ×3 (05:07→21:00)
[2023-09-15] MEDS: methylPREDNISolone SOD SUCC 40 MG/ML VIAL IV SCH ×3 (05:14→21:00)
[2023-09-15] MEDS: BLOOD SUGAR DIAGNOSTIC 1 EACH STRIP IN SCH ×4 (05:14→23:21)
[2023-09-15] MEDS: INSULIN REGULAR, HUMAN 100 UNIT/ML 3 ML VIAL SQ PRN ×4 (05:15→23:22)
[2023-09-15 05:27] LABS: BASOPHILS % (AUTO) 0.1 % (0.0-2.0); EOSINOPHILS % (AUTO) 0.1 % (0.0-6.0); HEMATOCRIT 37 % (39-51); HEMOGLOBIN 11.8 g/dL (13.5-17.5); LYMPHOCYTES # (AUTO) 0.6 K/uL (0.8-4.8); LYMPHOCYTES % (AUTO) 3.9 % (20.0-44.0); MEAN CORPUSCULAR HEMOGLOBIN 29 PG (26.0-33.0); MEAN CORPUSCULAR HGB CONC 32 g/dl (31.0-36.0); MEAN CORPUSCULAR VOLUME 91 fL (80-96); MONOCYTES # (AUTO) 1.2 K/uL (0.1-1.30); MONOCYTES % (AUTO) 8.5 % (2.0-12.0); NEUTROPHILS # (AUTO) 12.5 K/uL (1.8-8.9); NEUTROPHILS % (AUTO) 87.4 % (43.0-81.0); PLATELET COUNT (AUTO) 414 K/uL (150-450); RED BLOOD CELL COUNT(AUTO) 4.04 MIL/uL (4.5-6.0); RED CELL DISTRIBUTION WIDTH 13.7 % (11.5-15.0); WHITE BLOOD COUNT (AUTO) 14.3 K/uL (4.3-11.0)
[2023-09-15 05:34] LABS: CALCIUM, SERUM 8.6 mg/dL (8.5-10.1); CREATININE 0.6 mg/dL (0.6-1.3); POTASSIUM 3.9 mmol/L (3.5-5.1)
[2023-09-15] MEDS: GLUCERNA 1.2 1,000 ML BOTTLE NG SCH (06:49)
[2023-09-15] MEDS: INSULIN GLARGINE, 100 UNIT/ML CARTRIDGE SQ SCH ×2 (08:39→21:42)
[2023-09-15] MEDS: PROSOURCE / PROSTAT (PYXIS) 30 ML UDC GT SCH (08:43)
[2023-09-15] MEDS: PANTOPRAZOLE 40 MG/PACK PACK GT SCH (08:43)
[2023-09-15] MEDS: MIDAZOLAM HCL 200 MG in IV NS 0.9% 60 ML IV PRN (11:17)
[2023-09-15] MEDS ORDERED: KEY,NONCONTROL,TO KEEP IN PYXI 1 EA MC ONE (18:38)
[2023-09-15] MEDS: ENOXAPARIN SODIUM 40 MG/0.4 ML DISP.SYRIN SQ SCH (21:42)
[2023-09-16] VITALS (47 sets, daily range): BP systolic 83–163; BP diastolic 50–105; TEMP 98–99.4; O2SAT 90–100
[2023-09-16] MEDS: FENTANYL CITRAT IV 2,500 MCG in IV NS 0.9% 200 ML IV PRN ×3 (01:24→20:11)
[2023-09-16] MEDS: GLUCERNA 1.2 1,000 ML BOTTLE NG SCH (02:21)
[2023-09-16] MEDS: methylPREDNISolone SOD SUCC 40 MG/ML VIAL IV SCH ×3 (05:00→21:11)
[2023-09-16] MEDS: CEFEPIME 2 GM in IV D5W 100 ML IV SCH ×3 (05:00→21:10)
[2023-09-16] MEDS: INSULIN REGULAR, HUMAN 100 UNIT/ML 3 ML VIAL SQ PRN ×2 (06:12→23:56)
[2023-09-16] MEDS: BLOOD SUGAR DIAGNOSTIC 1 EACH STRIP IN SCH ×4 (06:12→23:55)
[2023-09-16] MEDS: MIDAZOLAM HCL 200 MG in IV NS 0.9% 60 ML IV PRN (08:08)
[2023-09-16] MEDS: PANTOPRAZOLE 40 MG/PACK PACK GT SCH (08:32)
[2023-09-16] MEDS: PROSOURCE / PROSTAT (PYXIS) 30 ML UDC GT SCH (08:32)
[2023-09-16] MEDS: INSULIN GLARGINE, 100 UNIT/ML CARTRIDGE SQ SCH ×2 (08:34→21:23)
[2023-09-16] MEDS ORDERED: KEY,NONCONTROL,TO KEEP IN PYXI 1 EA MC ONE (19:29)
[2023-09-16] MEDS: ENOXAPARIN SODIUM 40 MG/0.4 ML DISP.SYRIN SQ SCH (21:11)
[2023-09-17] VITALS (40 sets, daily range): BP systolic 82–143; BP diastolic 31–95; TEMP 97–99.3; O2SAT 92–100
[2023-09-17] MEDS: MIDAZOLAM HCL 200 MG in IV NS 0.9% 60 ML IV PRN (01:34)
[2023-09-17] MEDS: GLUCERNA 1.2 1,000 ML BOTTLE NG SCH (03:40)
[2023-09-17] MEDS: FENTANYL CITRAT IV 2,500 MCG in IV NS 0.9% 200 ML IV PRN ×2 (04:33→12:32)
[2023-09-17] MEDS: methylPREDNISolone SOD SUCC 40 MG/ML VIAL IV SCH ×3 (05:17→21:22)
[2023-09-17] MEDS: BLOOD SUGAR DIAGNOSTIC 1 EACH STRIP IN SCH ×3 (05:36→18:51)
[2023-09-17] MEDS: INSULIN REGULAR, HUMAN 100 UNIT/ML 3 ML VIAL SQ PRN ×3 (05:38→18:51)
[2023-09-17 07:24] LABS: ABG BASE EXCESS 4.6 mmol/L; ABG OXYGEN SATURATION 86.6 % (92.0-98.5); ABG PCO2 47.9 mmHg (35.0-45.0); ABG PH 7.415 (7.350-7.450); ABG PO2 52.1 mmHg (75.0-100.0); ABG TOTAL HEMOGLOBIN 12.7 G/dL (13.5-18.0); AaDO2 250.5 mmHg; COHb 0.6 % (0.5-1.5); MetHb 0.2 % (0.0-1.5); O2Hb 85.9 % (94.0-97.0); SITE, ABG Right Radial; VENT MODE, BG AC 24 500 50% +5
[2023-09-17] MEDS: PROSOURCE / PROSTAT (PYXIS) 30 ML UDC GT SCH (08:40)
[2023-09-17] MEDS: PANTOPRAZOLE 40 MG/PACK PACK GT SCH (09:02)
[2023-09-17] MEDS: INSULIN GLARGINE, 100 UNIT/ML CARTRIDGE SQ SCH ×2 (09:06→21:36)
[2023-09-17] MEDS ORDERED: MIDAZOLAM HCL 200 MG in IV NS 0.9% 60 ML IV PRN (13:30)
[2023-09-17 14:11] LABS: COCCIDIOIDES Abs, IgG,EIA 0.5 EIA Units (.); COCCIDIOIDES Abs, IgM,EIA 0.1 EIA Units (.)
[2023-09-17 18:27] LABS: ABG BASE EXCESS 5.4 mmol/L; ABG OXYGEN SATURATION 95.7 % (92.0-98.5); ABG PCO2 48.6 mmHg (35.0-45.0); ABG PO2 82.3 mmHg (75.0-100.0); AaDO2 582.1 mmHg; COHb 0.3 % (0.5-1.5); MetHb 0.4 % (0.0-1.5); SITE, ABG Right Radial
[2023-09-17] MEDS: ENOXAPARIN SODIUM 40 MG/0.4 ML DISP.SYRIN SQ SCH (21:25)
[2023-09-18] VITALS (31 sets, daily range): BP systolic 104–146; BP diastolic 63–93; TEMP 98.2–210.9; O2SAT 86–96
[2023-09-18] MEDS: BLOOD SUGAR DIAGNOSTIC 1 EACH STRIP IN SCH ×4 (00:13→18:23)
[2023-09-18] MEDS: INSULIN REGULAR, HUMAN 100 UNIT/ML 3 ML VIAL SQ PRN ×4 (00:15→18:26)
[2023-09-18] MEDS: GLUCERNA 1.2 1,000 ML BOTTLE NG SCH (03:48)
[2023-09-18 04:43] LABS: BASOPHILS % (AUTO) 0.2 % (0.0-2.0); HEMATOCRIT 36 % (39-51); HEMOGLOBIN 11.6 g/dL (13.5-17.5); LYMPHOCYTES # (AUTO) 0.3 K/uL (0.8-4.8); LYMPHOCYTES % (AUTO) 2.1 % (20.0-44.0); MEAN CORPUSCULAR HEMOGLOBIN 29 PG (26.0-33.0); MEAN CORPUSCULAR HGB CONC 33 g/dl (31.0-36.0); MEAN CORPUSCULAR VOLUME 90 fL (80-96); MONOCYTES # (AUTO) 0.7 K/uL (0.1-1.30); MONOCYTES % (AUTO) 4.6 % (2.0-12.0); NEUTROPHILS # (AUTO) 15.1 K/uL (1.8-8.9); NEUTROPHILS % (AUTO) 93.1 % (43.0-81.0); PLATELET COUNT (AUTO) 333 K/uL (150-450); RED BLOOD CELL COUNT(AUTO) 3.97 MIL/uL (4.5-6.0); RED CELL DISTRIBUTION WIDTH 13.6 % (11.5-15.0); WHITE BLOOD COUNT (AUTO) 16.2 K/uL (4.3-11.0)
[2023-09-18 04:57] LABS: CALCIUM, SERUM 8.4 mg/dL (8.5-10.1); CREATININE 0.6 mg/dL (0.6-1.3); POTASSIUM 4.1 mmol/L (3.5-5.1)
[2023-09-18] MEDS: methylPREDNISolone SOD SUCC 40 MG/ML VIAL IV SCH ×3 (05:03→21:39)
[2023-09-18] MEDS: ACETAMINOPHEN 650 MG/20.3 ML UDC GT PRN ×2 (08:16→17:46)
[2023-09-18] MEDS: PANTOPRAZOLE 40 MG/PACK PACK GT SCH (08:16)
[2023-09-18] MEDS: PROSOURCE / PROSTAT (PYXIS) 30 ML UDC GT SCH (08:16)
[2023-09-18] MEDS: INSULIN GLARGINE, 100 UNIT/ML CARTRIDGE SQ SCH ×2 (09:47→21:48)
[2023-09-18] MEDS ORDERED: LACTULOSE 10 G/15 ML UDC (PYXIS) GT ONE (13:30)
[2023-09-18] MEDS: ENOXAPARIN SODIUM 40 MG/0.4 ML DISP.SYRIN SQ SCH (21:41)
[2023-09-19] VITALS (38 sets, daily range): BP systolic 90–133; BP diastolic 59–83; TEMP 98.7–100.9; O2SAT 80–96
[2023-09-19] MEDS: INSULIN REGULAR, HUMAN 100 UNIT/ML 3 ML VIAL SQ PRN ×4 (00:51→17:51)
[2023-09-19] MEDS: BLOOD SUGAR DIAGNOSTIC 1 EACH STRIP IN SCH ×4 (00:52→17:50)
[2023-09-19] MEDS: methylPREDNISolone SOD SUCC 40 MG/ML VIAL IV SCH ×3 (05:10→20:28)
[2023-09-19 06:20] LABS: BASOPHILS % (AUTO) 0.1 % (0.0-2.0); HEMATOCRIT 40 % (39-51); HEMOGLOBIN 12.7 g/dL (13.5-17.5); LYMPHOCYTES # (AUTO) 0.2 K/uL (0.8-4.8); LYMPHOCYTES % (AUTO) 1.2 % (20.0-44.0); MEAN CORPUSCULAR HEMOGLOBIN 29 PG (26.0-33.0); MEAN CORPUSCULAR HGB CONC 32 g/dl (31.0-36.0); MEAN CORPUSCULAR VOLUME 91 fL (80-96); MONOCYTES # (AUTO) 0.6 K/uL (0.1-1.30); MONOCYTES % (AUTO) 3.2 % (2.0-12.0); NEUTROPHILS # (AUTO) 17.6 K/uL (1.8-8.9); NEUTROPHILS % (AUTO) 95.5 % (43.0-81.0); PLATELET COUNT (AUTO) 356 K/uL (150-450); RED BLOOD CELL COUNT(AUTO) 4.35 MIL/uL (4.5-6.0); RED CELL DISTRIBUTION WIDTH 13.6 % (11.5-15.0); WHITE BLOOD COUNT (AUTO) 18.4 K/uL (4.3-11.0)
[2023-09-19 06:50] LABS: BILIRUBIN,DIRECT 0.2 mg/dL (0.0-0.2); BILIRUBIN,TOTAL 1.1 mg/dL (0.2-1.0); CALCIUM, SERUM 8.8 mg/dL (8.5-10.1); CREATININE 0.6 mg/dL (0.6-1.3); TOTAL PROTEIN, SERUM 7.1 g/dL (6.4-8.2)
[2023-09-19] MEDS: INSULIN GLARGINE, 100 UNIT/ML CARTRIDGE SQ SCH ×2 (09:41→20:43)
[2023-09-19] MEDS: PROSOURCE / PROSTAT (PYXIS) 30 ML UDC GT SCH (09:43)
[2023-09-19] MEDS: PANTOPRAZOLE 40 MG/PACK PACK GT SCH (09:51)
[2023-09-19] MEDS: ACETAMINOPHEN 650 MG/20.3 ML UDC GT PRN ×3 (10:15→16:42)
[2023-09-19] MEDS: GLUCERNA 1.2 1,000 ML BOTTLE NG SCH (15:26)
[2023-09-19] MEDS: ENOXAPARIN SODIUM 40 MG/0.4 ML DISP.SYRIN SQ SCH (20:42)
[2023-09-20] VITALS (44 sets, daily range): BP systolic 88–136; BP diastolic 51–94; TEMP 98–102.7; O2SAT 86–100
[2023-09-20] MEDS: BLOOD SUGAR DIAGNOSTIC 1 EACH STRIP IN SCH ×5 (00:24→23:31)
[2023-09-20] MEDS: INSULIN REGULAR, HUMAN 100 UNIT/ML 3 ML VIAL SQ PRN ×6 (00:33→23:33)
[2023-09-20] MEDS: ACETAMINOPHEN 650 MG/20.3 ML UDC GT PRN (02:36)
[2023-09-20 05:21] LABS: CALCIUM, SERUM 8.8 mg/dL (8.5-10.1); CREATININE 0.8 mg/dL (0.6-1.3); POTASSIUM 3.8 mmol/L (3.5-5.1)
[2023-09-20] MEDS: methylPREDNISolone SOD SUCC 40 MG/ML VIAL IV SCH ×3 (05:36→20:42)
[2023-09-20 07:20] LABS: BASOPHILS % (AUTO) 0.2 % (0.0-2.0); EOSINOPHILS % (AUTO) 0.2 % (0.0-6.0); HEMATOCRIT 39 % (39-51); HEMOGLOBIN 12.6 g/dL (13.5-17.5); LYMPHOCYTES # (AUTO) 0.7 K/uL (0.8-4.8); LYMPHOCYTES % (AUTO) 3.4 % (20.0-44.0); MEAN CORPUSCULAR HEMOGLOBIN 29 PG (26.0-33.0); MEAN CORPUSCULAR HGB CONC 32 g/dl (31.0-36.0); MEAN CORPUSCULAR VOLUME 90 fL (80-96); MONOCYTES # (AUTO) 1.3 K/uL (0.1-1.30); MONOCYTES % (AUTO) 6.5 % (2.0-12.0); NEUTROPHILS # (AUTO) 18.1 K/uL (1.8-8.9); NEUTROPHILS % (AUTO) 89.7 % (43.0-81.0); PLATELET COUNT (AUTO) 345 K/uL (150-450); RED CELL DISTRIBUTION WIDTH 13.9 % (11.5-15.0); WHITE BLOOD COUNT (AUTO) 20.1 K/uL (4.3-11.0)
[2023-09-20] MEDS: PANTOPRAZOLE 40 MG/PACK PACK GT SCH (08:16)
[2023-09-20] MEDS: PROSOURCE / PROSTAT (PYXIS) 30 ML UDC GT SCH (08:17)
[2023-09-20] MEDS: INSULIN GLARGINE, 100 UNIT/ML CARTRIDGE SQ SCH ×2 (08:21→20:50)
[2023-09-20] MEDS: GLUCERNA 1.2 1,000 ML BOTTLE NG SCH (09:22)
[2023-09-20] MEDS: ZOSYN IVPB 3.375 G in IV D5W 50ml IV SCH ×2 (13:48→20:42)
[2023-09-20] MEDS: ENOXAPARIN SODIUM 40 MG/0.4 ML DISP.SYRIN SQ SCH (20:49)
[2023-09-21] VITALS (35 sets, daily range): BP systolic 93–135; BP diastolic 60–88; TEMP 99–99.6; O2SAT 89–99
[2023-09-21] MEDS: ZOSYN IVPB 3.375 G in IV D5W 50ml IV SCH ×4 (01:23→20:37)
[2023-09-21 04:52] LABS: BASOPHILS # (AUTO) 0.1 K/uL (0.0-0.2); BASOPHILS % (AUTO) 0.5 % (0.0-2.0); HEMATOCRIT 38 % (39-51); HEMOGLOBIN 12.1 g/dL (13.5-17.5); LYMPHOCYTES # (AUTO) 0.4 K/uL (0.8-4.8); LYMPHOCYTES % (AUTO) 1.6 % (20.0-44.0); MEAN CORPUSCULAR HEMOGLOBIN 29 PG (26.0-33.0); MEAN CORPUSCULAR HGB CONC 32 g/dl (31.0-36.0); MEAN CORPUSCULAR VOLUME 90 fL (80-96); MONOCYTES # (AUTO) 1.3 K/uL (0.1-1.30); MONOCYTES % (AUTO) 5.4 % (2.0-12.0); NEUTROPHILS # (AUTO) 21.6 K/uL (1.8-8.9); NEUTROPHILS % (AUTO) 92.5 % (43.0-81.0); PLATELET COUNT (AUTO) 306 K/uL (150-450); RED BLOOD CELL COUNT(AUTO) 4.19 MIL/uL (4.5-6.0); RED CELL DISTRIBUTION WIDTH 13.9 % (11.5-15.0); WHITE BLOOD COUNT (AUTO) 23.3 K/uL (4.3-11.0)
[2023-09-21 05:08] LABS: CALCIUM, SERUM 8.5 mg/dL (8.5-10.1); CREATININE 0.7 mg/dL (0.6-1.3); POTASSIUM 4.2 mmol/L (3.5-5.1)
[2023-09-21] MEDS: methylPREDNISolone SOD SUCC 40 MG/ML VIAL IV SCH ×2 (05:40→20:37)
[2023-09-21] MEDS: BLOOD SUGAR DIAGNOSTIC 1 EACH STRIP IN SCH ×4 (05:46→23:35)
[2023-09-21] MEDS: INSULIN REGULAR, HUMAN 100 UNIT/ML 3 ML VIAL SQ PRN ×4 (05:47→23:37)
[2023-09-21 06:22] LABS: ABG BASE EXCESS 4.6 mmol/L; ABG OXYGEN SATURATION 92.2 % (92.0-98.5); ABG PCO2 46.3 mmHg (35.0-45.0); ABG PH 7.426 (7.350-7.450); ABG PO2 65.4 mmHg (75.0-100.0); ABG TOTAL HEMOGLOBIN 14.2 G/dL (13.5-18.0); AaDO2 383.9 mmHg; COHb 0.6 % (0.5-1.5); MetHb 0.3 % (0.0-1.5); O2Hb 91.4 % (94.0-97.0); SITE, ABG Left Radial; VENT MODE, BG HHF 40L 70%
[2023-09-21] MEDS: PROSOURCE / PROSTAT (PYXIS) 30 ML UDC GT SCH (07:56)
[2023-09-21] MEDS: ACETAMINOPHEN 650 MG/20.3 ML UDC GT PRN ×2 (07:56→20:37)
[2023-09-21] MEDS: PANTOPRAZOLE 40 MG/PACK PACK GT SCH (08:02)
[2023-09-21] MEDS: INSULIN GLARGINE, 100 UNIT/ML CARTRIDGE SQ SCH ×2 (09:00→20:50)
[2023-09-21] MEDS: FUROSEMIDE 20 MG/2 ML VIAL IV SCH ×2 (10:26→16:45)
[2023-09-21] MEDS: ENOXAPARIN SODIUM 40 MG/0.4 ML DISP.SYRIN SQ SCH (20:38)
[2023-09-22] VITALS (40 sets, daily range): BP systolic 103–130; BP diastolic 54–85; TEMP 97–101.3; O2SAT 86–95
[2023-09-22] MEDS: ZOSYN IVPB 3.375 G in IV D5W 50ml IV SCH ×4 (01:03→20:02)
[2023-09-22 05:09] LABS: BASOPHILS % (AUTO) 0.1 % (0.0-2.0); HEMATOCRIT 38 % (39-51); HEMOGLOBIN 12.4 g/dL (13.5-17.5); LYMPHOCYTES # (AUTO) 0.4 K/uL (0.8-4.8); MEAN CORPUSCULAR HEMOGLOBIN 29 PG (26.0-33.0); MEAN CORPUSCULAR HGB CONC 33 g/dl (31.0-36.0); MEAN CORPUSCULAR VOLUME 90 fL (80-96); MONOCYTES # (AUTO) 1.2 K/uL (0.1-1.30); NEUTROPHILS # (AUTO) 18.9 K/uL (1.8-8.9); NEUTROPHILS % (AUTO) 91.9 % (43.0-81.0); PLATELET COUNT (AUTO) 264 K/uL (150-450); RED BLOOD CELL COUNT(AUTO) 4.24 MIL/uL (4.5-6.0); RED CELL DISTRIBUTION WIDTH 13.8 % (11.5-15.0); WHITE BLOOD COUNT (AUTO) 20.6 K/uL (4.3-11.0)
[2023-09-22] MEDS: BLOOD SUGAR DIAGNOSTIC 1 EACH STRIP IN SCH ×3 (05:16→17:43)
[2023-09-22] MEDS: INSULIN REGULAR, HUMAN 100 UNIT/ML 3 ML VIAL SQ PRN ×2 (05:17→13:14)
[2023-09-22 05:21] LABS: CALCIUM, SERUM 8.8 mg/dL (8.5-10.1); CREATININE 0.8 mg/dL (0.6-1.3); POTASSIUM 3.9 mmol/L (3.5-5.1)
[2023-09-22] MEDS: PANTOPRAZOLE 40 MG/PACK PACK GT SCH (08:27)
[2023-09-22] MEDS: methylPREDNISolone SOD SUCC 40 MG/ML VIAL IV SCH ×2 (08:28→20:18)
[2023-09-22] MEDS: FUROSEMIDE 20 MG/2 ML VIAL IV SCH ×2 (08:30→16:17)
[2023-09-22] MEDS: PROSOURCE / PROSTAT (PYXIS) 30 ML UDC GT SCH (08:32)
[2023-09-22] MEDS: INSULIN GLARGINE, 100 UNIT/ML CARTRIDGE SQ SCH ×2 (08:33→20:31)
[2023-09-22] MEDS: ENOXAPARIN SODIUM 40 MG/0.4 ML DISP.SYRIN SQ SCH (20:31)
[2023-09-23] VITALS (36 sets, daily range): BP systolic 111–125; BP diastolic 68–91; TEMP 98.7–102.9; O2SAT 90–100
[2023-09-23] MEDS: BLOOD SUGAR DIAGNOSTIC 1 EACH STRIP IN SCH ×5 (00:08→18:20)
[2023-09-23] MEDS: INSULIN REGULAR, HUMAN 100 UNIT/ML 3 ML VIAL SQ PRN ×4 (00:36→18:05)
[2023-09-23] MEDS: ZOSYN IVPB 3.375 G in IV D5W 50ml IV SCH ×2 (01:06→08:28)
[2023-09-23 04:35] LABS: BASOPHILS % (AUTO) 0.1 % (0.0-2.0); HEMATOCRIT 39 % (39-51); HEMOGLOBIN 13.1 g/dL (13.5-17.5); LYMPHOCYTES # (AUTO) 0.3 K/uL (0.8-4.8); LYMPHOCYTES % (AUTO) 1.7 % (20.0-44.0); MEAN CORPUSCULAR HEMOGLOBIN 30 PG (26.0-33.0); MEAN CORPUSCULAR HGB CONC 33 g/dl (31.0-36.0); MEAN CORPUSCULAR VOLUME 90 fL (80-96); MONOCYTES # (AUTO) 0.9 K/uL (0.1-1.30); MONOCYTES % (AUTO) 5.4 % (2.0-12.0); NEUTROPHILS # (AUTO) 15.1 K/uL (1.8-8.9); NEUTROPHILS % (AUTO) 92.8 % (43.0-81.0); PLATELET COUNT (AUTO) 267 K/uL (150-450); RED BLOOD CELL COUNT(AUTO) 4.39 MIL/uL (4.5-6.0); RED CELL DISTRIBUTION WIDTH 13.8 % (11.5-15.0); WHITE BLOOD COUNT (AUTO) 16.3 K/uL (4.3-11.0)
[2023-09-23 04:41] LABS: POTASSIUM 3.8 mmol/L (3.5-5.1)
[2023-09-23 07:18] LABS: ABG BASE EXCESS 6.5 mmol/L; ABG OXYGEN SATURATION 93.8 % (92.0-98.5); ABG PH 7.439 (7.350-7.450); ABG PO2 71.6 mmHg (75.0-100.0); AaDO2 593.4 mmHg; COHb 0.8 % (0.5-1.5); MetHb 0.3 % (0.0-1.5); O2Hb 92.8 % (94.0-97.0); SITE, ABG Right Radial; VENT MODE, BG high flow nc 40L 100%
[2023-09-23 07:19] LABS: ABG BASE EXCESS 8.4 mmol/L; ABG OXYGEN SATURATION 85.1 % (92.0-98.5); ABG PCO2 33.7 mmHg (35.0-45.0); ABG PH 7.573 (7.350-7.450); ABG PO2 43.6 mmHg (75.0-100.0); ABG TOTAL HEMOGLOBIN 14.9 G/dL (13.5-18.0); AaDO2 491.4 mmHg; COHb 0.9 % (0.5-1.5); MetHb 0.3 % (0.0-1.5); O2Hb 84.1 % (94.0-97.0); SITE, ABG Right Radial
[2023-09-23] MEDS: methylPREDNISolone SOD SUCC 40 MG/ML VIAL IV SCH (08:21)
[2023-09-23] MEDS: PANTOPRAZOLE 40 MG/PACK PACK GT SCH (08:21)
[2023-09-23] MEDS: PROSOURCE / PROSTAT (PYXIS) 30 ML UDC GT SCH (08:21)
[2023-09-23] MEDS: FUROSEMIDE 20 MG/2 ML VIAL IV SCH ×2 (08:21→16:40)
[2023-09-23] MEDS: ACETAMINOPHEN 650 MG/20.3 ML UDC GT PRN (08:28)
[2023-09-23] MEDS: INSULIN GLARGINE, 100 UNIT/ML CARTRIDGE SQ SCH ×2 (09:37→21:08)
[2023-09-23] MEDS ORDERED: PIPERACILLIN /TAZOBACTAM 3.375 G in IV D5W 100 ML IV SCH (13:00)
[2023-09-23] MEDS: MEROPENEM 1 G in IV NS 0.9% 100 ML IV SCH (20:03)
[2023-09-23] MEDS: ENOXAPARIN SODIUM 40 MG/0.4 ML DISP.SYRIN SQ SCH (21:08)
[2023-09-24] VITALS (36 sets, daily range): BP systolic 105–125; BP diastolic 69–98; TEMP 98.6–100.2; O2SAT 92–96
[2023-09-24] MEDS: BLOOD SUGAR DIAGNOSTIC 1 EACH STRIP IN SCH ×4 (00:17→17:18)
[2023-09-24] MEDS: INSULIN REGULAR, HUMAN 100 UNIT/ML 3 ML VIAL SQ PRN ×4 (00:22→17:16)
[2023-09-24] MEDS: ACETAMINOPHEN 650 MG/20.3 ML UDC GT PRN ×3 (03:25→21:58)
[2023-09-24] MEDS: MEROPENEM 1 G in IV NS 0.9% 100 ML IV SCH ×3 (04:01→21:09)
[2023-09-24 04:38] LABS: CALCIUM, SERUM 8.4 mg/dL (8.5-10.1); CREATININE 0.3 mg/dL (0.6-1.3); POTASSIUM 3.5 mmol/L (3.5-5.1)
[2023-09-24] MEDS: PROSOURCE / PROSTAT (PYXIS) 30 ML UDC GT SCH (08:15)
[2023-09-24] MEDS: FUROSEMIDE 20 MG/2 ML VIAL IV SCH ×2 (08:15→16:56)
[2023-09-24] MEDS: methylPREDNISolone SOD SUCC 40 MG/ML VIAL IV SCH (08:16)
[2023-09-24] MEDS: PANTOPRAZOLE 40 MG/PACK PACK GT SCH (08:16)
[2023-09-24] MEDS: INSULIN GLARGINE, 100 UNIT/ML CARTRIDGE SQ SCH ×2 (09:06→21:18)
[2023-09-24 11:30] LABS: BASOPHILS % (AUTO) 0.1 % (0.0-2.0); EOSINOPHILS # (AUTO) 0.1 K/uL (0.0-0.7); EOSINOPHILS % (AUTO) 0.4 % (0.0-6.0); HEMATOCRIT 40 % (39-51); LYMPHOCYTES # (AUTO) 0.6 K/uL (0.8-4.8); LYMPHOCYTES % (AUTO) 4.3 % (20.0-44.0); MEAN CORPUSCULAR HEMOGLOBIN 30 PG (26.0-33.0); MEAN CORPUSCULAR HGB CONC 33 g/dl (31.0-36.0); MEAN CORPUSCULAR VOLUME 91 fL (80-96); MONOCYTES # (AUTO) 0.9 K/uL (0.1-1.30); MONOCYTES % (AUTO) 6.2 % (2.0-12.0); NEUTROPHILS # (AUTO) 12.6 K/uL (1.8-8.9); PLATELET COUNT (AUTO) 254 K/uL (150-450); RED BLOOD CELL COUNT(AUTO) 4.37 MIL/uL (4.5-6.0); RED CELL DISTRIBUTION WIDTH 14.1 % (11.5-15.0); WHITE BLOOD COUNT (AUTO) 14.2 K/uL (4.3-11.0)
[2023-09-24] MEDS: ENOXAPARIN SODIUM 40 MG/0.4 ML DISP.SYRIN SQ SCH (21:18)
[2023-09-25] VITALS (36 sets, daily range): BP systolic 99–125; BP diastolic 47–89; TEMP 97.9–100.4; O2SAT 89–99
[2023-09-25] MEDS: BLOOD SUGAR DIAGNOSTIC 1 EACH STRIP IN SCH ×3 (00:07→12:05)
[2023-09-25] MEDS: INSULIN REGULAR, HUMAN 100 UNIT/ML 3 ML VIAL SQ PRN ×4 (00:24→17:22)
[2023-09-25] MEDS: MEROPENEM 1 G in IV NS 0.9% 100 ML IV SCH ×3 (04:15→20:30)
[2023-09-25] MEDS: methylPREDNISolone SOD SUCC 40 MG/ML VIAL IV SCH (08:31)
[2023-09-25] MEDS: PROSOURCE / PROSTAT (PYXIS) 30 ML UDC GT SCH (08:31)
[2023-09-25] MEDS: FUROSEMIDE 20 MG/2 ML VIAL IV SCH ×2 (08:31→16:05)
[2023-09-25] MEDS: PANTOPRAZOLE 40 MG/PACK PACK GT SCH (08:31)
[2023-09-25] MEDS: INSULIN GLARGINE, 100 UNIT/ML CARTRIDGE SQ SCH ×2 (08:37→20:46)
[2023-09-25 09:57] LABS: BASOPHILS # (AUTO) 0.1 K/uL (0.0-0.2); BASOPHILS % (AUTO) 0.8 % (0.0-2.0); EOSINOPHILS # (AUTO) 0.1 K/uL (0.0-0.7); EOSINOPHILS % (AUTO) 0.9 % (0.0-6.0); HEMATOCRIT 41 % (39-51); HEMOGLOBIN 12.9 g/dL (13.5-17.5); LYMPHOCYTES # (AUTO) 0.4 K/uL (0.8-4.8); LYMPHOCYTES % (AUTO) 2.4 % (20.0-44.0); MEAN CORPUSCULAR HEMOGLOBIN 29 PG (26.0-33.0); MEAN CORPUSCULAR HGB CONC 32 g/dl (31.0-36.0); MEAN CORPUSCULAR VOLUME 91 fL (80-96); MONOCYTES # (AUTO) 0.6 K/uL (0.1-1.30); MONOCYTES % (AUTO) 4.1 % (2.0-12.0); NEUTROPHILS # (AUTO) 13.8 K/uL (1.8-8.9); NEUTROPHILS % (AUTO) 91.8 % (43.0-81.0); PLATELET COUNT (AUTO) 236 K/uL (150-450); RED BLOOD CELL COUNT(AUTO) 4.46 MIL/uL (4.5-6.0); RED CELL DISTRIBUTION WIDTH 14.1 % (11.5-15.0)
[2023-09-25 10:14] LABS: CALCIUM, SERUM 8.8 mg/dL (8.5-10.1); CREATININE 0.8 mg/dL (0.6-1.3); MAGNESIUM 2.2 mg/dL (1.8-2.4); PHOSPHORUS 2.9 mg/dL (2.5-4.9); POTASSIUM 3.8 mmol/L (3.5-5.1)
[2023-09-25] MEDS: ACETAMINOPHEN 650 MG/20.3 ML UDC GT PRN (12:13)
[2023-09-25] MEDS: BLOOD SUGAR DIAGNOSTIC 1 EACH STRIP VI SCH ×2 (17:17→22:02)
[2023-09-25] MEDS ORDERED: DEXTROSE 50%-WATER 50 ML DISP.SYRIN IV PRN (17:30)
[2023-09-25] MEDS: ENOXAPARIN SODIUM 40 MG/0.4 ML DISP.SYRIN SQ SCH (20:49)
[2023-09-25] MEDS: *INSULIN REGULAR(HUMULIN R)HUM 100 UNIT/ML VIAL SQ PRN (22:00)
[2023-09-26] VITALS (36 sets, daily range): BP systolic 95–144; BP diastolic 62–89; TEMP 98.1–99.2; O2SAT 87–98
[2023-09-26] MEDS: MEROPENEM 1 G in IV NS 0.9% 100 ML IV SCH ×3 (04:56→21:36)
[2023-09-26] MEDS: methylPREDNISolone SOD SUCC 40 MG/ML VIAL IV SCH (08:42)
[2023-09-26] MEDS: BLOOD SUGAR DIAGNOSTIC 1 EACH STRIP VI SCH ×4 (08:42→21:43)
[2023-09-26] MEDS: PROSOURCE / PROSTAT (PYXIS) 30 ML UDC GT SCH (08:42)
[2023-09-26] MEDS: PANTOPRAZOLE 40 MG/PACK PACK GT SCH (08:42)
[2023-09-26] MEDS: INSULIN REGULAR, HUMAN 100 UNIT/ML 3 ML VIAL SQ PRN ×4 (08:43→21:44)
[2023-09-26] MEDS: FUROSEMIDE 20 MG/2 ML VIAL IV SCH ×2 (08:43→17:26)
[2023-09-26] MEDS: INSULIN GLARGINE, 100 UNIT/ML CARTRIDGE SQ SCH ×2 (08:45→21:44)
[2023-09-26] MEDS: ENOXAPARIN SODIUM 40 MG/0.4 ML DISP.SYRIN SQ SCH (21:40)
[2023-09-27] VITALS (36 sets, daily range): BP systolic 94–138; BP diastolic 59–89; TEMP 98–98.5; O2SAT 91–97
[2023-09-27] MEDS: MEROPENEM 1 G in IV NS 0.9% 100 ML IV SCH ×3 (04:21→21:23)
[2023-09-27] MEDS: BLOOD SUGAR DIAGNOSTIC 1 EACH STRIP VI SCH ×5 (07:51→22:47)
[2023-09-27] MEDS: INSULIN REGULAR, HUMAN 100 UNIT/ML 3 ML VIAL SQ PRN ×3 (07:57→17:17)
[2023-09-27] MEDS: INSULIN GLARGINE, 100 UNIT/ML CARTRIDGE SQ SCH ×2 (08:02→21:48)
[2023-09-27] MEDS ORDERED: MAG HYDROX/AL HYDROX/SIMETH 30 ML UDC PO PRN (08:22)
[2023-09-27] MEDS ORDERED: MAGNESIUM HYDROXIDE 30 ML UDC PO PRN (08:23)
[2023-09-27] MEDS ORDERED: PHARMACY TO CHANGE GT/NG MEDS TO PO XX PRN (08:30)
[2023-09-27] MEDS: PANTOPRAZOLE 40 MG TABLET.DR PO SCH (08:46)
[2023-09-27] MEDS: methylPREDNISolone SOD SUCC 40 MG/ML VIAL IV SCH (08:47)
[2023-09-27] MEDS: FUROSEMIDE 20 MG/2 ML VIAL IV SCH ×2 (08:47→17:15)
[2023-09-27] MEDS: ENOXAPARIN SODIUM 40 MG/0.4 ML DISP.SYRIN SQ SCH (21:24)
[2023-09-27] MEDS: *INSULIN REGULAR(HUMULIN R)HUM 100 UNIT/ML VIAL SQ PRN ×2 (21:52→22:48)
[2023-09-28] VITALS (31 sets, daily range): BP systolic 84–124; BP diastolic 37–88; TEMP 97.7–98; O2SAT 80–98
[2023-09-28] MEDS: MEROPENEM 1 G in IV NS 0.9% 100 ML IV SCH ×3 (04:42→20:26)
[2023-09-28] MEDS: BLOOD SUGAR DIAGNOSTIC 1 EACH STRIP VI SCH ×4 (07:54→21:09)
[2023-09-28] MEDS: INSULIN REGULAR, HUMAN 100 UNIT/ML 3 ML VIAL SQ PRN ×3 (07:54→17:53)
[2023-09-28] MEDS: PROSOURCE / PROSTAT (PYXIS) 30 ML UDC PO SCH (08:04)
[2023-09-28] MEDS: PANTOPRAZOLE 40 MG TABLET.DR PO SCH (08:48)
[2023-09-28] MEDS: FUROSEMIDE 20 MG/2 ML VIAL IV SCH ×2 (08:48→17:00)
[2023-09-28] MEDS: methylPREDNISolone SOD SUCC 40 MG/ML VIAL IV SCH (08:48)
[2023-09-28] MEDS: INSULIN GLARGINE, 100 UNIT/ML CARTRIDGE SQ SCH ×2 (08:52→21:07)
[2023-09-28] MEDS ORDERED: IV NS 0.9% 250 ML IV PRN (16:00)
[2023-09-28] MEDS: ENOXAPARIN SODIUM 40 MG/0.4 ML DISP.SYRIN SQ SCH (21:09)
[2023-09-29] VITALS (16 sets, daily range): BP systolic 83–115; BP diastolic 60–75; TEMP 97.3–98.5; O2SAT 91–99
[2023-09-29] MEDS: MEROPENEM 1 G in IV NS 0.9% 100 ML IV SCH ×3 (05:51→20:25)
[2023-09-29] MEDS: BLOOD SUGAR DIAGNOSTIC 1 EACH STRIP VI SCH ×4 (06:45→22:08)
[2023-09-29] MEDS: PANTOPRAZOLE 40 MG TABLET.DR PO SCH (08:53)
[2023-09-29] MEDS: methylPREDNISolone SOD SUCC 40 MG/ML VIAL IV SCH (08:53)
[2023-09-29] MEDS: FUROSEMIDE 20 MG/2 ML VIAL IV SCH ×2 (08:53→17:00)
[2023-09-29] MEDS: INSULIN GLARGINE, 100 UNIT/ML CARTRIDGE SQ SCH ×2 (09:04→20:34)
[2023-09-29] MEDS: PROSOURCE / PROSTAT (PYXIS) 30 ML UDC PO SCH (09:05)
[2023-09-29] MEDS: INSULIN REGULAR, HUMAN 100 UNIT/ML 3 ML VIAL SQ PRN ×2 (11:57→17:53)
[2023-09-29] MEDS: ENOXAPARIN SODIUM 40 MG/0.4 ML DISP.SYRIN SQ SCH (20:25)
[2023-09-29] MEDS: *INSULIN REGULAR(HUMULIN R)HUM 100 UNIT/ML VIAL SQ PRN (22:09)
[2023-09-30] VITALS: BP 94/61; TEMP 98.6; O2SAT 98
[2023-09-30 04:00] VITALS: BP 104/69; TEMP 98.2; O2SAT 98
[2023-09-30] MEDS: MEROPENEM 1 G in IV NS 0.9% 100 ML IV SCH ×3 (05:09→20:21)
[2023-09-30] MEDS: BLOOD SUGAR DIAGNOSTIC 1 EACH STRIP VI SCH ×4 (07:49→22:17)
[2023-09-30 08:00] VITALS: BP 116/68; TEMP 99.3; O2SAT 96
[2023-09-30] MEDS: INSULIN REGULAR, HUMAN 100 UNIT/ML 3 ML VIAL SQ PRN ×3 (08:00→18:01)
[2023-09-30] MEDS: PROSOURCE / PROSTAT (PYXIS) 30 ML UDC PO SCH (08:02)
[2023-09-30] MEDS: methylPREDNISolone SOD SUCC 40 MG/ML VIAL IV SCH (08:44)
[2023-09-30] MEDS: FUROSEMIDE 20 MG/2 ML VIAL IV SCH ×2 (08:44→17:10)
[2023-09-30] MEDS: PANTOPRAZOLE 40 MG TABLET.DR PO SCH (08:44)
[2023-09-30] MEDS: INSULIN GLARGINE, 100 UNIT/ML CARTRIDGE SQ SCH ×2 (09:04→20:34)
[2023-09-30] MEDS ORDERED: LACTULOSE 10 G/15 ML UDC (PYXIS) PO ONE (11:00)
[2023-09-30] MEDS ORDERED: POLYETHYLENE GLYCOL 3350 17 GM POWD.PACK PO PRN (11:30)
[2023-09-30 12:00] VITALS: BP 117/80; TEMP 98.7; O2SAT 94
[2023-09-30] MEDS: ACETAMINOPHEN 325 MG TABLET PO PRN ×2 (12:06→18:09)
[2023-09-30 16:00] VITALS: BP 99/58; TEMP 97.6; O2SAT 97
[2023-09-30 20:00] VITALS: BP 100/64; TEMP 98.4; O2SAT 98
[2023-09-30] MEDS: ENOXAPARIN SODIUM 40 MG/0.4 ML DISP.SYRIN SQ SCH (20:19)
[2023-09-30] MEDS: *INSULIN REGULAR(HUMULIN R)HUM 100 UNIT/ML VIAL SQ PRN (22:18)
[2023-10-01] VITALS: BP 101/72; TEMP 97.7; O2SAT 99
[2023-10-01 06:00] VITALS: BP 92/62; TEMP 97.9; O2SAT 94
[2023-10-01 08:00] VITALS: BP 103/60; TEMP 98.9; O2SAT 94
[2023-10-01] MEDS: PANTOPRAZOLE 40 MG TABLET.DR PO SCH (08:27)
[2023-10-01] MEDS: methylPREDNISolone SOD SUCC 40 MG/ML VIAL IV SCH (08:27)
[2023-10-01] MEDS: PROSOURCE / PROSTAT (PYXIS) 30 ML UDC PO SCH (08:28)
[2023-10-01] MEDS: ACETAMINOPHEN 325 MG TABLET PO PRN ×2 (08:36→17:26)
[2023-10-01] MEDS: BLOOD SUGAR DIAGNOSTIC 1 EACH STRIP VI SCH ×4 (08:36→21:24)
[2023-10-01] MEDS: INSULIN GLARGINE, 100 UNIT/ML CARTRIDGE SQ SCH ×2 (08:36→21:25)
[2023-10-01] MEDS: FUROSEMIDE 20 MG/2 ML VIAL IV SCH (09:00)
[2023-10-01 12:00] VITALS: BP 108/77; TEMP 97.8; O2SAT 96
[2023-10-01] MEDS: INSULIN REGULAR, HUMAN 100 UNIT/ML 3 ML VIAL SQ PRN ×2 (12:34→17:27)
[2023-10-01 16:00] VITALS: BP 104/70; TEMP 98.2; O2SAT 97
[2023-10-01 20:00] VITALS: BP 108/68; TEMP 98.1; O2SAT 98
[2023-10-01] MEDS: ENOXAPARIN SODIUM 40 MG/0.4 ML DISP.SYRIN SQ SCH (21:35)
[2023-10-02] VITALS: BP 136/93; TEMP 98.4; O2SAT 94
[2023-10-02 04:00] VITALS: BP 114/74; TEMP 98.4; O2SAT 95
[2023-10-02 07:16] LABS: BASOPHILS % (AUTO) 0.2 % (0.0-2.0); EOSINOPHILS # (AUTO) 0.2 K/uL (0.0-0.7); EOSINOPHILS % (AUTO) 1.3 % (0.0-6.0); HEMATOCRIT 35 % (39-51); HEMOGLOBIN 11.7 g/dL (13.5-17.5); LYMPHOCYTES # (AUTO) 0.9 K/uL (0.8-4.8); LYMPHOCYTES % (AUTO) 5.6 % (20.0-44.0); MEAN CORPUSCULAR HEMOGLOBIN 30 PG (26.0-33.0); MEAN CORPUSCULAR HGB CONC 33 g/dl (31.0-36.0); MEAN CORPUSCULAR VOLUME 89 fL (80-96); MONOCYTES # (AUTO) 0.8 K/uL (0.1-1.30); MONOCYTES % (AUTO) 5.2 % (2.0-12.0); NEUTROPHILS # (AUTO) 13.4 K/uL (1.8-8.9); NEUTROPHILS % (AUTO) 87.7 % (43.0-81.0); PLATELET COUNT (AUTO) 342 K/uL (150-450); RED BLOOD CELL COUNT(AUTO) 3.93 MIL/uL (4.5-6.0); RED CELL DISTRIBUTION WIDTH 13.7 % (11.5-15.0); WHITE BLOOD COUNT (AUTO) 15.2 K/uL (4.3-11.0)
[2023-10-02 07:34] LABS: CALCIUM, SERUM 8.3 mg/dL (8.5-10.1); CREATININE 0.5 mg/dL (0.6-1.3); MAGNESIUM 1.8 mg/dL (1.8-2.4); PHOSPHORUS 2.7 mg/dL (2.5-4.9); POTASSIUM 4.1 mmol/L (3.5-5.1)
[2023-10-02] MEDS: BLOOD SUGAR DIAGNOSTIC 1 EACH STRIP VI SCH ×4 (07:46→21:46)
[2023-10-02] MEDS: PROSOURCE / PROSTAT (PYXIS) 30 ML UDC PO SCH (07:47)
[2023-10-02 08:00] VITALS: BP 107/67; TEMP 97.9; O2SAT 96
[2023-10-02] MEDS ORDERED: methylPREDNISolone SOD SUCC 40 MG/ML VIAL IV SCH (09:00)
[2023-10-02] MEDS: PANTOPRAZOLE 40 MG TABLET.DR PO SCH (09:51)
[2023-10-02] MEDS: INSULIN GLARGINE, 100 UNIT/ML CARTRIDGE SQ SCH ×2 (09:53→21:45)
[2023-10-02] MEDS: ACETAMINOPHEN 325 MG TABLET PO PRN ×2 (10:15→16:49)
[2023-10-02 12:00] VITALS: BP 110/67; TEMP 98; O2SAT 96
[2023-10-02 16:00] VITALS: BP 114/74; TEMP 98; O2SAT 96
[2023-10-02] MEDS: INSULIN REGULAR, HUMAN 100 UNIT/ML 3 ML VIAL SQ PRN (19:05)
[2023-10-02 20:00] VITALS: BP 105/71; TEMP 98.8; O2SAT 97
[2023-10-02] MEDS: ENOXAPARIN SODIUM 40 MG/0.4 ML DISP.SYRIN SQ SCH (21:45)
[2023-10-03] MEDS: ACETAMINOPHEN 325 MG TABLET PO PRN (02:57)
[2023-10-03 06:00] VITALS: BP 95/67; TEMP 97.6; O2SAT 97
[2023-10-03 07:16] LABS: BASOPHILS % (AUTO) 0.1 % (0.0-2.0); EOSINOPHILS # (AUTO) 0.2 K/uL (0.0-0.7); EOSINOPHILS % (AUTO) 1.1 % (0.0-6.0); HEMATOCRIT 35 % (39-51); HEMOGLOBIN 11.5 g/dL (13.5-17.5); LYMPHOCYTES # (AUTO) 1.1 K/uL (0.8-4.8); LYMPHOCYTES % (AUTO) 6.2 % (20.0-44.0); MEAN CORPUSCULAR HEMOGLOBIN 29 PG (26.0-33.0); MEAN CORPUSCULAR HGB CONC 33 g/dl (31.0-36.0); MEAN CORPUSCULAR VOLUME 90 fL (80-96); MONOCYTES # (AUTO) 0.7 K/uL (0.1-1.30); MONOCYTES % (AUTO) 4.3 % (2.0-12.0); NEUTROPHILS # (AUTO) 15.1 K/uL (1.8-8.9); NEUTROPHILS % (AUTO) 88.3 % (43.0-81.0); PLATELET COUNT (AUTO) 342 K/uL (150-450); RED CELL DISTRIBUTION WIDTH 13.9 % (11.5-15.0); WHITE BLOOD COUNT (AUTO) 17.1 K/uL (4.3-11.0)
[2023-10-03] MEDS: BLOOD SUGAR DIAGNOSTIC 1 EACH STRIP VI SCH ×4 (07:30→22:15)
[2023-10-03 07:48] LABS: CALCIUM, SERUM 8.4 mg/dL (8.5-10.1); CREATININE 0.6 mg/dL (0.6-1.3); PHOSPHORUS 4.3 mg/dL (2.5-4.9); POTASSIUM 3.8 mmol/L (3.5-5.1)
[2023-10-03] MEDS: PANTOPRAZOLE 40 MG TABLET.DR PO SCH (09:31)
[2023-10-03] MEDS: PROSOURCE / PROSTAT (PYXIS) 30 ML UDC PO SCH (09:31)
[2023-10-03] MEDS: INSULIN GLARGINE, 100 UNIT/ML CARTRIDGE SQ SCH ×2 (09:39→22:17)
[2023-10-03 12:00] VITALS: BP 102/67; TEMP 98; O2SAT 96
[2023-10-03 17:36] VITALS: O2SAT 93
[2023-10-03] MEDS: IPRATROPIUM NEB FS 0.5 MG/2.5 ML AMPUL.NEB NEB PRN (17:36)
[2023-10-03] MEDS: ALBUTEROL FS 2.5 MG/3 ML VIAL.NEB NEB PRN (17:36)
[2023-10-03 17:51] VITALS: O2SAT 98
[2023-10-03 18:00] VITALS: BP 115/68; TEMP 98.2; O2SAT 98
[2023-10-03] MEDS: *INSULIN REGULAR(HUMULIN R)HUM 100 UNIT/ML VIAL SQ PRN (22:16)
[2023-10-03] MEDS: ENOXAPARIN SODIUM 40 MG/0.4 ML DISP.SYRIN SQ SCH (22:17)
[2023-10-04] VITALS (8 sets, daily range): BP systolic 101–115; BP diastolic 66–74; TEMP 98.2–99.8; O2SAT 92–98
[2023-10-04 06:53] LABS: BASOPHILS % (AUTO) 0.3 % (0.0-2.0); EOSINOPHILS # (AUTO) 0.2 K/uL (0.0-0.7); HEMATOCRIT 32 % (39-51); HEMOGLOBIN 10.5 g/dL (13.5-17.5); LYMPHOCYTES # (AUTO) 0.9 K/uL (0.8-4.8); LYMPHOCYTES % (AUTO) 4.8 % (20.0-44.0); MEAN CORPUSCULAR HEMOGLOBIN 30 PG (26.0-33.0); MEAN CORPUSCULAR HGB CONC 33 g/dl (31.0-36.0); MEAN CORPUSCULAR VOLUME 89 fL (80-96); MONOCYTES # (AUTO) 0.7 K/uL (0.1-1.30); MONOCYTES % (AUTO) 3.9 % (2.0-12.0); PLATELET COUNT (AUTO) 353 K/uL (150-450); RED BLOOD CELL COUNT(AUTO) 3.54 MIL/uL (4.5-6.0); RED CELL DISTRIBUTION WIDTH 13.9 % (11.5-15.0); WHITE BLOOD COUNT (AUTO) 17.8 K/uL (4.3-11.0)
[2023-10-04] MEDS: BLOOD SUGAR DIAGNOSTIC 1 EACH STRIP VI SCH ×4 (08:22→22:10)
[2023-10-04] MEDS: INSULIN GLARGINE, 100 UNIT/ML CARTRIDGE SQ SCH ×2 (09:00→20:35)
[2023-10-04] MEDS: PROSOURCE / PROSTAT (PYXIS) 30 ML UDC PO SCH (10:39)
[2023-10-04] MEDS: PANTOPRAZOLE 40 MG TABLET.DR PO SCH (11:14)
[2023-10-04] MEDS: ENOXAPARIN SODIUM 40 MG/0.4 ML DISP.SYRIN SQ SCH (20:33)
[2023-10-04] MEDS: INSULIN REGULAR, HUMAN 100 UNIT/ML 3 ML VIAL SQ PRN (22:08)
[2023-10-04] MEDS: ALBUTEROL FS 2.5 MG/3 ML VIAL.NEB NEB PRN (23:08)
[2023-10-04] MEDS: IPRATROPIUM NEB FS 0.5 MG/2.5 ML AMPUL.NEB NEB PRN (23:08)
[2023-10-05 04:00] VITALS: BP 117/68; TEMP 98.6; O2SAT 98
[2023-10-05] MEDS: BLOOD SUGAR DIAGNOSTIC 1 EACH STRIP VI SCH ×4 (07:43→21:14)
[2023-10-05 08:00] VITALS: BP 100/54; TEMP 99; O2SAT 94
[2023-10-05] MEDS: PROSOURCE / PROSTAT (PYXIS) 30 ML UDC PO SCH (08:02)
[2023-10-05 08:24] LABS: BASOPHILS % (AUTO) 0.1 % (0.0-2.0); EOSINOPHILS # (AUTO) 0.1 K/uL (0.0-0.7); EOSINOPHILS % (AUTO) 1.1 % (0.0-6.0); HEMATOCRIT 30 % (39-51); HEMOGLOBIN 9.9 g/dL (13.5-17.5); MEAN CORPUSCULAR HEMOGLOBIN 29 PG (26.0-33.0); MEAN CORPUSCULAR HGB CONC 32 g/dl (31.0-36.0); MEAN CORPUSCULAR VOLUME 89 fL (80-96); MONOCYTES # (AUTO) 0.7 K/uL (0.1-1.30); MONOCYTES % (AUTO) 4.9 % (2.0-12.0); NEUTROPHILS % (AUTO) 86.9 % (43.0-81.0); PLATELET COUNT (AUTO) 376 K/uL (150-450); RED BLOOD CELL COUNT(AUTO) 3.42 MIL/uL (4.5-6.0); RED CELL DISTRIBUTION WIDTH 14.1 % (11.5-15.0); WHITE BLOOD COUNT (AUTO) 13.9 K/uL (4.3-11.0)
[2023-10-05 08:39] LABS: CALCIUM, SERUM 8.3 mg/dL (8.5-10.1); CREATININE 0.6 mg/dL (0.6-1.3); PHOSPHORUS 3.7 mg/dL (2.5-4.9); POTASSIUM 3.4 mmol/L (3.5-5.1)
[2023-10-05] MEDS: INSULIN GLARGINE, 100 UNIT/ML CARTRIDGE SQ SCH ×2 (09:00→21:16)
[2023-10-05] MEDS: PANTOPRAZOLE 40 MG TABLET.DR PO SCH (09:26)
[2023-10-05] MEDS ORDERED: POTASSIUM CHLORIDE 20 MEQ TAB.PRT.SR PO ONE (11:00)
[2023-10-05 16:00] VITALS: BP 98/47; TEMP 98.8; O2SAT 95
[2023-10-05 20:00] VITALS: BP 104/67; TEMP 98.7; O2SAT 96
[2023-10-05 20:38] LABS: APPEARANCE,URINE CLEAR (CLEAR); BILIRUBIN,URINE NEGATIVE (NEGATIVE); BLOOD, URINE TRACE-INTA Ery/uL (NEGATIVE); COLOR,URINE YELLOW (YELLOW); KETONES,URINE NEGATIVE (NEGATIVE); LEUKOCYTE ESTERASE ,URINE 1+ (NEGATIVE); NITRITE, URINE NEGATIVE (NEGATIVE); PH,URINE 7.5 (5.0-8.0); PROTEIN,URINE TRACE mg/dl (NEGATIVE); UGLUCOSE NEGATIVE (NEGATIVE); UROBILINOGEN,URINE 0.2 EU/dL (0.2)
[2023-10-05 21:00] LABS: ADD URINE CULTURE YES; BACTERIA,URINE Few /HPF (None Seen); MUCUS,URINE Few /LPF (None Seen); SQUAMOUS EPITHELIAL CELL,UR None Seen /HPF (None Seen)
[2023-10-05] MEDS: ENOXAPARIN SODIUM 40 MG/0.4 ML DISP.SYRIN SQ SCH (21:12)
[2023-10-05] MEDS: INSULIN REGULAR, HUMAN 100 UNIT/ML 3 ML VIAL SQ PRN (21:14)
[2023-10-05] MEDS: *INSULIN REGULAR(HUMULIN R)HUM 100 UNIT/ML VIAL SQ PRN (22:00)
[2023-10-05] MEDS: ALBUTEROL FS 2.5 MG/3 ML VIAL.NEB NEB PRN (23:30)
[2023-10-05] MEDS: IPRATROPIUM NEB FS 0.5 MG/2.5 ML AMPUL.NEB NEB PRN (23:30)
[2023-10-05 23:31] VITALS: O2SAT 93
[2023-10-05 23:46] VITALS: O2SAT 96
[2023-10-06 04:44] VITALS: BP 107/68; TEMP 98; O2SAT 94
[2023-10-06] MEDS: BLOOD SUGAR DIAGNOSTIC 1 EACH STRIP VI SCH ×4 (07:26→21:48)
[2023-10-06 07:30] LABS: BASOPHILS % (AUTO) 0.1 % (0.0-2.0); EOSINOPHILS # (AUTO) 0.2 K/uL (0.0-0.7); EOSINOPHILS % (AUTO) 1.4 % (0.0-6.0); HEMATOCRIT 30 % (39-51); HEMOGLOBIN 9.8 g/dL (13.5-17.5); LYMPHOCYTES # (AUTO) 0.9 K/uL (0.8-4.8); LYMPHOCYTES % (AUTO) 7.9 % (20.0-44.0); MEAN CORPUSCULAR HEMOGLOBIN 29 PG (26.0-33.0); MEAN CORPUSCULAR HGB CONC 33 g/dl (31.0-36.0); MEAN CORPUSCULAR VOLUME 89 fL (80-96); MONOCYTES # (AUTO) 0.7 K/uL (0.1-1.30); MONOCYTES % (AUTO) 6.9 % (2.0-12.0); NEUTROPHILS % (AUTO) 83.7 % (43.0-81.0); PLATELET COUNT (AUTO) 395 K/uL (150-450); RED BLOOD CELL COUNT(AUTO) 3.36 MIL/uL (4.5-6.0); RED CELL DISTRIBUTION WIDTH 14.2 % (11.5-15.0); WHITE BLOOD COUNT (AUTO) 10.8 K/uL (4.3-11.0)
[2023-10-06 08:07] LABS: CALCIUM, SERUM 8.4 mg/dL (8.5-10.1); CREATININE 0.7 mg/dL (0.6-1.3); MAGNESIUM 2.2 mg/dL (1.8-2.4); POTASSIUM 3.5 mmol/L (3.5-5.1)
[2023-10-06 08:12] VITALS: BP 106/60; TEMP 98.8; O2SAT 95
[2023-10-06] MEDS: PANTOPRAZOLE 40 MG TABLET.DR PO SCH (09:51)
[2023-10-06] MEDS: PROSOURCE / PROSTAT (PYXIS) 30 ML UDC PO SCH (09:52)
[2023-10-06] MEDS: INSULIN GLARGINE, 100 UNIT/ML CARTRIDGE SQ SCH ×2 (09:52→21:42)
[2023-10-06] MEDS: INSULIN REGULAR, HUMAN 100 UNIT/ML 3 ML VIAL SQ PRN (11:09)
[2023-10-06 16:04] VITALS: BP 117/68; TEMP 98.6; O2SAT 98
[2023-10-06 20:00] VITALS: BP 107/71; TEMP 98.6; O2SAT 94
[2023-10-06] MEDS: *INSULIN REGULAR(HUMULIN R)HUM 100 UNIT/ML VIAL SQ PRN (21:43)
[2023-10-06] MEDS: ENOXAPARIN SODIUM 40 MG/0.4 ML DISP.SYRIN SQ SCH (21:47)
[2023-10-07 04:00] VITALS: BP 110/75; TEMP 98.8; O2SAT 94
[2023-10-07 07:16] LABS: BASOPHILS # (AUTO) 0.1 K/uL (0.0-0.2); BASOPHILS % (AUTO) 0.6 % (0.0-2.0); EOSINOPHILS # (AUTO) 0.2 K/uL (0.0-0.7); EOSINOPHILS % (AUTO) 1.8 % (0.0-6.0); HEMATOCRIT 31 % (39-51); HEMOGLOBIN 10.2 g/dL (13.5-17.5); LYMPHOCYTES # (AUTO) 1.2 K/uL (0.8-4.8); LYMPHOCYTES % (AUTO) 11.8 % (20.0-44.0); MEAN CORPUSCULAR HEMOGLOBIN 29 PG (26.0-33.0); MEAN CORPUSCULAR HGB CONC 33 g/dl (31.0-36.0); MEAN CORPUSCULAR VOLUME 89 fL (80-96); MONOCYTES # (AUTO) 0.8 K/uL (0.1-1.30); NEUTROPHILS # (AUTO) 7.6 K/uL (1.8-8.9); NEUTROPHILS % (AUTO) 77.8 % (43.0-81.0); PLATELET COUNT (AUTO) 427 K/uL (150-450); RED BLOOD CELL COUNT(AUTO) 3.46 MIL/uL (4.5-6.0); RED CELL DISTRIBUTION WIDTH 14.1 % (11.5-15.0); WHITE BLOOD COUNT (AUTO) 9.8 K/uL (4.3-11.0)
[2023-10-07 07:28] LABS: CALCIUM, SERUM 8.2 mg/dL (8.5-10.1); CREATININE 0.7 mg/dL (0.6-1.3); MAGNESIUM 1.9 mg/dL (1.8-2.4); PHOSPHORUS 3.8 mg/dL (2.5-4.9); POTASSIUM 3.5 mmol/L (3.5-5.1)
[2023-10-07 08:00] VITALS: BP 113/75; TEMP 99.5; O2SAT 98
[2023-10-07] MEDS: BLOOD SUGAR DIAGNOSTIC 1 EACH STRIP VI SCH ×3 (08:00→17:18)
[2023-10-07] MEDS: INSULIN GLARGINE, 100 UNIT/ML CARTRIDGE SQ SCH (09:00)
[2023-10-07] MEDS: PANTOPRAZOLE 40 MG TABLET.DR PO SCH (09:43)
[2023-10-07] MEDS: PROSOURCE / PROSTAT (PYXIS) 30 ML UDC PO SCH (09:43)
[2023-10-07] MEDS ORDERED: Z GUARD REMEDY 4 OZ OINT TP SCH (10:30)
[2023-10-07] MEDS ORDERED: Z GUARD REMEDY 4 OZ OINT TP PRN (10:30)
[2023-10-07] MEDS ORDERED: TAMS-12 PO (12:23)
[2023-10-07] MEDS ORDERED: METF-440 PO (12:23)
[2023-10-07 16:00] VITALS: BP 104/78; TEMP 98.8; O2SAT 97
== END 2023-10-07 18:24 | disposition home or self-care (01) | DRG 720 ==
LOC: ER 11:57 → TRANSITION 17:51 → ICU 09-06 19:57 → TELE-TD 09-29 13:09 → TELE1 10-01 09:45 → MEDSG1 10-02 08:35
PROVIDERS: ADMIT Nurse Practitioner Acute Care; ATTEND Nurse Practitioner Family
PROC: 5A09457 Assistance with Respiratory Ventilation, 24-96 Consecutive Hours, Continuous Positive Airway Pressure (ICD-10-PCS; 2023-09-05)
PROC: 5A1955Z Respiratory Ventilation, Greater than 96 Consecutive Hours (ICD-10-PCS; principal; 2023-09-07)
PROC: 05HC33Z Insertion of Infusion Device into Left Basilic Vein, Percutaneous Approach (ICD-10-PCS; 2023-09-07)
PROC: 04HL33Z Insertion of Infusion Device into Left Femoral Artery, Percutaneous Approach (ICD-10-PCS; 2023-09-16)
PROC: 5A09357 Assistance with Respiratory Ventilation, Less than 24 Consecutive Hours, Continuous Positive Airway Pressure (ICD-10-PCS; 2023-09-17)
PROC: 05HC33Z Insertion of Infusion Device into Left Basilic Vein, Percutaneous Approach (ICD-10-PCS; 2023-09-17)
DX: A41.9 Sepsis, unspecified organism (principal); J96.21 Acute and chronic respiratory failure with hypoxia; R65.21 Severe sepsis with septic shock; I50.31 Acute diastolic (congestive) heart failure; J15.69 Pneumonia due to other Gram-negative bacteria; J15.9 Unspecified bacterial pneumonia; E44.0 Moderate protein-calorie malnutrition; E87.20 Acidosis, unspecified; E88.09 Other disorders of plasma-protein metabolism, not elsewhere classified; E83.51 Hypocalcemia; I21.A1 Myocardial infarction type 2; I11.0 Hypertensive heart disease with heart failure; J96.22 Acute and chronic respiratory failure with hypercapnia; Z20.822 Contact with and (suspected) exposure to COVID-19; E66.2 Morbid (severe) obesity with alveolar hypoventilation; E11.65 Type 2 diabetes mellitus with hyperglycemia; J90 Pleural effusion, not elsewhere classified; R74.01 Elevation of levels of liver transaminase levels; Z68.41 Body mass index [BMI] 40.0-44.9, adult; J98.11 Atelectasis; J93.9 Pneumothorax, unspecified; K59.00 Constipation, unspecified; R79.89 Other specified abnormal findings of blood chemistry; T79.7XXA Traumatic subcutaneous emphysema, initial encounter; X58.XXXA Exposure to other specified factors, initial encounter; Y92.89 Other specified places as the place of occurrence of the external cause; R31.9 Hematuria, unspecified
CPT/HCPCS: 31720; 36410; 36415; 36600; 71045-TC; 74018; 80048-TC; 80061-TC; 80076-TC; 81001; 82533; 82803-TC; 82962-TC; 83605-TC; 83735-TC; 83880; 84100-TC; 84443-TC; 84478-TC; 84484-TC; 85025-TC; 85730-TC; 86308-TC; 86403-TC; 86480; 86713; 86738; 86803; 87040-TC; 87081-TC; 87086-TC; 87449; 87806; 92526; 92611-TC; 93307-TC; 93970-TC; 94002-TC; 94003-TC; 94762-TC; 94799-TC; 97110-TC; 97116-TC; 97530-TC; 99082-TC; A4223; A6403; C1751; C9113; C9803; G0378; J0692; J0696; J1650; J1815; J1940; J1956; J2185; J2250; J2405; J2543; J2704; J2920; J2930; J3010; J3370; J3475; J3490; J7030; J7040; J7050; J7060

== ENCOUNTER 2023-10-21 12:30 | Inpatient (IN) | payer OTHER ==
[~2023-10-21] VITALS: Ht 160 cm; Wt 113.9 kg
[2023-10-21] VITALS: BP 106/67; TEMP 98.2; O2SAT 95
[~2023-10-21 12:30] MED LIST: METF-440 PO; TAMS-12 PO
[2023-10-21 13:29] LABS: BASOPHILS # (AUTO) 0.1 K/uL (0.0-0.2); BASOPHILS % (AUTO) 0.9 % (0.0-2.0); EOSINOPHILS # (AUTO) 0.3 K/uL (0.0-0.7); EOSINOPHILS % (AUTO) 2.5 % (0.0-6.0); HEMATOCRIT 34 % (39-51); LYMPHOCYTES # (AUTO) 3.7 K/uL (0.8-4.8); LYMPHOCYTES % (AUTO) 26.1 % (20.0-44.0); MEAN CORPUSCULAR HEMOGLOBIN 29 PG (26.0-33.0); MEAN CORPUSCULAR HGB CONC 33 g/dl (31.0-36.0); MEAN CORPUSCULAR VOLUME 88 fL (80-96); MONOCYTES # (AUTO) 1.4 K/uL (0.1-1.30); MONOCYTES % (AUTO) 10.1 % (2.0-12.0); NEUTROPHILS # (AUTO) 8.5 K/uL (1.8-8.9); NEUTROPHILS % (AUTO) 60.4 % (43.0-81.0); PLATELET COUNT (AUTO) 765 K/uL (150-450); RED BLOOD CELL COUNT(AUTO) 3.84 MIL/uL (4.5-6.0); RED CELL DISTRIBUTION WIDTH 15.8 % (11.5-15.0); WHITE BLOOD COUNT (AUTO) 14.1 K/uL (4.3-11.0)
[2023-10-21 13:42] LABS: CALCIUM, SERUM 8.4 mg/dL (8.5-10.1); CREATININE 0.8 mg/dL (0.6-1.3); POTASSIUM 3.7 mmol/L (3.5-5.1)
[2023-10-21 13:47] LABS: ALBUMIN 1.8 g/dL (3.4-5.0); BILIRUBIN,DIRECT 0.1 mg/dL (0.0-0.2); BILIRUBIN,TOTAL 0.3 mg/dL (0.2-1.0); TOTAL PROTEIN, SERUM 8.6 g/dL (6.4-8.2)
[2023-10-21 15:08] LABS: APPEARANCE,URINE SLIGHTLY CLOUDY (CLEAR); BILIRUBIN,URINE 1+ (NEGATIVE); BLOOD, URINE 1+ Ery/uL (NEGATIVE); COLOR,URINE YELLOW (YELLOW); KETONES,URINE 1+ mg/dL (NEGATIVE); LEUKOCYTE ESTERASE ,URINE 3+ (NEGATIVE); NITRITE, URINE NEGATIVE (NEGATIVE); PROTEIN,URINE 2+ mg/dl (NEGATIVE); UGLUCOSE NEGATIVE (NEGATIVE)
[2023-10-21] MEDS ORDERED: METF-440 PO (15:10)
[2023-10-21] MEDS ORDERED: TAMS-12 PO (15:10)
[2023-10-21 16:01] LABS: ADD URINE CULTURE YES; BACTERIA,URINE 2+ /HPF (None Seen); SQUAMOUS EPITHELIAL CELL,UR 0-2 /HPF (None Seen); WBC,URINE 51-80 /HPF (0-3)
[2023-10-21] MEDS ORDERED: CEFTRIAXONE 1GM BAG (ER ONLY) 50 ML IV ONE ×2 (17:00→17:25)
[2023-10-21] MEDS ORDERED: HYDROCODONE/APAP 5/325MG TABLET PO PRN (19:00)
[2023-10-21] MEDS ORDERED: DEXTROSE 50%-WATER 50 ML DISP.SYRIN IV PRN (19:00)
[2023-10-21] MEDS ORDERED: ACETAMINOPHEN 325 MG TABLET PO PRN (19:00)
[2023-10-21] MEDS ORDERED: MAGNESIUM HYDROXIDE 30 ML UDC PO PRN (19:00)
[2023-10-21 20:00] VITALS: BP 134/86; TEMP 97.5; O2SAT 95
[2023-10-21] MEDS: ENOXAPARIN SODIUM 40 MG/0.4 ML DISP.SYRIN SQ SCH (21:42)
[2023-10-21] MEDS: TAMSULOSIN 0.4 MG CAP.SR.24H PO SCH (21:42)
[2023-10-21] MEDS: IV NS 0.9% 1,000 ML IV PRN (21:52)
[2023-10-21] MEDS: BLOOD SUGAR DIAGNOSTIC 1 EACH STRIP VI SCH (22:16)
[2023-10-21] MEDS: INSULIN REGULAR, HUMAN 100 UNIT/ML 3 ML VIAL SQ PRN (23:21)
[2023-10-22] VITALS (8 sets, daily range): BP systolic 100–119; BP diastolic 58–77; TEMP 97.2–98.4; O2SAT 95–99
[2023-10-22] MEDS: BLOOD SUGAR DIAGNOSTIC 1 EACH STRIP VI SCH ×4 (06:01→21:34)
[2023-10-22] MEDS: *INSULIN REGULAR(HUMULIN R)HUM 100 UNIT/ML VIAL SQ PRN (06:03)
[2023-10-22] MEDS: PANTOPRAZOLE 40 MG TABLET.DR PO SCH (07:58)
[2023-10-22] MEDS: INSULIN REGULAR, HUMAN 100 UNIT/ML 3 ML VIAL SQ PRN ×2 (12:52→16:54)
[2023-10-22] MEDS: IV NS 0.9% 1,000 ML IV PRN (14:18)
[2023-10-22] MEDS: CEFTRIAXONE 1 G in IV D5W 50 ML IV SCH (16:29)
[2023-10-22] MEDS: ENOXAPARIN SODIUM 40 MG/0.4 ML DISP.SYRIN SQ SCH (20:42)
[2023-10-22] MEDS: TAMSULOSIN 0.4 MG CAP.SR.24H PO SCH (21:09)
[2023-10-23] VITALS (7 sets, daily range): BP systolic 107–119; BP diastolic 65–72; TEMP 97.9–99; O2SAT 90–98
[2023-10-23] MEDS: IV NS 0.9% 1,000 ML IV PRN (04:08)
[2023-10-23] MEDS: BLOOD SUGAR DIAGNOSTIC 1 EACH STRIP VI SCH ×4 (06:06→22:02)
[2023-10-23 07:03] LABS: BASOPHILS # (AUTO) 0.1 K/uL (0.0-0.2); BASOPHILS % (AUTO) 0.5 % (0.0-2.0); EOSINOPHILS # (AUTO) 0.5 K/uL (0.0-0.7); EOSINOPHILS % (AUTO) 3.6 % (0.0-6.0); HEMATOCRIT 30 % (39-51); HEMOGLOBIN 9.9 g/dL (13.5-17.5); LYMPHOCYTES # (AUTO) 3.2 K/uL (0.8-4.8); LYMPHOCYTES % (AUTO) 24.8 % (20.0-44.0); MEAN CORPUSCULAR HEMOGLOBIN 29 PG (26.0-33.0); MEAN CORPUSCULAR HGB CONC 33 g/dl (31.0-36.0); MEAN CORPUSCULAR VOLUME 89 fL (80-96); MONOCYTES # (AUTO) 1.3 K/uL (0.1-1.30); MONOCYTES % (AUTO) 9.8 % (2.0-12.0); NEUTROPHILS # (AUTO) 7.9 K/uL (1.8-8.9); NEUTROPHILS % (AUTO) 61.3 % (43.0-81.0); PLATELET COUNT (AUTO) 654 K/uL (150-450); RED CELL DISTRIBUTION WIDTH 15.4 % (11.5-15.0); WHITE BLOOD COUNT (AUTO) 12.9 K/uL (4.3-11.0)
[2023-10-23 07:28] LABS: CALCIUM, SERUM 8.4 mg/dL (8.5-10.1); CREATININE 0.6 mg/dL (0.6-1.3); POTASSIUM 3.5 mmol/L (3.5-5.1)
[2023-10-23] MEDS: PANTOPRAZOLE 40 MG TABLET.DR PO SCH (08:19)
[2023-10-23] MEDS: SIMETHICONE 80 MG TAB.CHEW PO PRN ×2 (12:44→22:07)
[2023-10-23] MEDS: ONDANSETRON HCL/PF 4 MG/2 ML VIAL IVP PRN ×3 (12:48→19:49)
[2023-10-23] MEDS: CEFTRIAXONE 1 G in IV D5W 50 ML IV SCH (16:02)
[2023-10-23] MEDS: TAMSULOSIN 0.4 MG CAP.SR.24H PO SCH (22:02)
[2023-10-23] MEDS: ENOXAPARIN SODIUM 40 MG/0.4 ML DISP.SYRIN SQ SCH (22:12)
[2023-10-24] VITALS: BP 109/72; TEMP 98.2; O2SAT 98
[2023-10-24] MEDS: IV NS 0.9% 1,000 ML IV PRN ×2 (04:16→17:04)
[2023-10-24] MEDS: ONDANSETRON HCL/PF 4 MG/2 ML VIAL IVP PRN (04:21)
[2023-10-24] MEDS: BLOOD SUGAR DIAGNOSTIC 1 EACH STRIP VI SCH ×4 (06:09→22:00)
[2023-10-24] MEDS: *INSULIN REGULAR(HUMULIN R)HUM 100 UNIT/ML VIAL SQ PRN (06:31)
[2023-10-24 06:52] LABS: BASOPHILS % (AUTO) 0.4 % (0.0-2.0); EOSINOPHILS # (AUTO) 0.6 K/uL (0.0-0.7); EOSINOPHILS % (AUTO) 4.8 % (0.0-6.0); HEMATOCRIT 30 % (39-51); HEMOGLOBIN 9.8 g/dL (13.5-17.5); LYMPHOCYTES # (AUTO) 3.5 K/uL (0.8-4.8); MEAN CORPUSCULAR HEMOGLOBIN 29 PG (26.0-33.0); MEAN CORPUSCULAR HGB CONC 33 g/dl (31.0-36.0); MEAN CORPUSCULAR VOLUME 89 fL (80-96); MONOCYTES # (AUTO) 1.3 K/uL (0.1-1.30); NEUTROPHILS # (AUTO) 7.6 K/uL (1.8-8.9); NEUTROPHILS % (AUTO) 57.8 % (43.0-81.0); PLATELET COUNT (AUTO) 629 K/uL (150-450); RED BLOOD CELL COUNT(AUTO) 3.37 MIL/uL (4.5-6.0); RED CELL DISTRIBUTION WIDTH 15.8 % (11.5-15.0); WHITE BLOOD COUNT (AUTO) 13.1 K/uL (4.3-11.0)
[2023-10-24 07:00] VITALS: BP 112/80; TEMP 98.8; O2SAT 95
[2023-10-24 07:05] LABS: CREATININE 0.7 mg/dL (0.6-1.3); POTASSIUM 3.6 mmol/L (3.5-5.1)
[2023-10-24 07:36] LABS: CALCIUM, SERUM 8.4 mg/dL (8.5-10.1)
[2023-10-24] MEDS: PANTOPRAZOLE 40 MG TABLET.DR PO SCH (08:07)
[2023-10-24 11:18] LABS: INR 1.1 (0.91-1.10); PROTHROMBIN TIME 11.6 SECS (9.2-11.1)
[2023-10-24] MEDS: INSULIN REGULAR, HUMAN 100 UNIT/ML 3 ML VIAL SQ PRN ×2 (11:47→16:44)
[2023-10-24 16:00] VITALS: BP 98/55; TEMP 97.2; O2SAT 98
[2023-10-24] MEDS: CEFTRIAXONE 1 G in IV D5W 50 ML IV SCH (17:00)
[2023-10-24 20:50] VITALS: BP 111/80; TEMP 98.6; O2SAT 100
[2023-10-24 21:00] VITALS: BP 111/80; TEMP 98.6; O2SAT 100
[2023-10-24] MEDS: ENOXAPARIN SODIUM 40 MG/0.4 ML DISP.SYRIN SQ SCH (21:00)
[2023-10-24] MEDS: TAMSULOSIN 0.4 MG CAP.SR.24H PO SCH (22:13)
[2023-10-25] VITALS: BP 118/79; TEMP 98.2; O2SAT 97
[2023-10-25 04:00] VITALS: BP 103/68; TEMP 98.1; O2SAT 98
[2023-10-25] MEDS: BLOOD SUGAR DIAGNOSTIC 1 EACH STRIP VI SCH ×3 (06:57→17:30)
[2023-10-25 07:00] VITALS: BP 102/55; TEMP 98.4; O2SAT 94
[2023-10-25] MEDS: PANTOPRAZOLE 40 MG TABLET.DR PO SCH (07:50)
[2023-10-25] MEDS ORDERED: FAMO-131 PO (10:42)
[2023-10-25] MEDS ORDERED: CEPH500T PO (10:42)
[2023-10-25] MEDS: INSULIN REGULAR, HUMAN 100 UNIT/ML 3 ML VIAL SQ PRN (11:19)
[2023-10-25 13:00] VITALS: BP 128/60; TEMP 98.6; O2SAT 94
[2023-10-25] MEDS: CEFTRIAXONE 1 G in IV D5W 50 ML IV SCH (17:00)
== END 2023-10-25 18:27 | disposition home or self-care (01) | DRG 720 ==
LOC: ER 12:47 → MED 19:32 → TELE 20:37
PROVIDERS: ADMIT Student in an Organized Health Care Education/Training Program; ATTEND Internal Medicine
PROC: 0DB68ZX Excision of Stomach, Via Natural or Artificial Opening Endoscopic, Diagnostic (ICD-10-PCS; principal; 2023-10-24)
DX: A41.9 Sepsis, unspecified organism (principal); E43 Unspecified severe protein-calorie malnutrition; I50.9 Heart failure, unspecified; I11.0 Hypertensive heart disease with heart failure; N13.6 Pyonephrosis; E87.1 Hypo-osmolality and hyponatremia; E11.65 Type 2 diabetes mellitus with hyperglycemia; E66.9 Obesity, unspecified; Z68.41 Body mass index [BMI] 40.0-44.9, adult; G47.33 Obstructive sleep apnea (adult) (pediatric); K29.70 Gastritis, unspecified, without bleeding; Z79.84 Long term (current) use of oral hypoglycemic drugs; Z79.899 Other long term (current) drug therapy; Z90.49 Acquired absence of other specified parts of digestive tract; R13.10 Dysphagia, unspecified
CPT/HCPCS: 36415; 43246; 71045-TC; 80048-TC; 80076-TC; 81001; 82962-TC; 83605-TC; 83690-TC; 84484-TC; 85025-TC; 85610-TC; 86850-TC; 87040-TC; 87086-TC; 92526; 92611-TC; A4223; G0378; J0696; J1650; J1815; J2405; J2704; J2765; J3490; J7030; J7060